=== PATIENT | male | born 1950 | race Caucasian/White ===

== ENCOUNTER → 2019-01-02 | Outpatient (CLI) | payer MEDICARE, OTHER | END | disposition home or self-care (01) | LOC: SHCH 14:49 | PROVIDERS: ATTEND Internal Medicine Cardiovascular Disease | DX: I08.0 Rheumatic disorders of both mitral and aortic valves (principal) | CPT/HCPCS: 93306 ==

== ENCOUNTER → 2019-01-10 | Outpatient (CLI) | payer MEDICARE, OTHER | END | disposition home or self-care (01) | LOC: RAH 12:22 | PROVIDERS: ATTEND Internal Medicine | DX: I70.209 Unspecified atherosclerosis of native arteries of extremities, unspecified extremity (principal) | CPT/HCPCS: 93925 ==

== ENCOUNTER → 2020-03-06 | Outpatient (CLI) | payer MEDICARE, OTHER | END | disposition home or self-care (01) | LOC: RAH 08:01 | PROVIDERS: ATTEND Internal Medicine | DX: K80.20 Calculus of gallbladder without cholecystitis without obstruction (principal); K76.0 Fatty (change of) liver, not elsewhere classified; R16.0 Hepatomegaly, not elsewhere classified | CPT/HCPCS: 76705 ==

== ENCOUNTER → 2020-05-01 | Outpatient (CLI) | payer MEDICARE, OTHER | END | disposition home or self-care (01) | LOC: RAH 13:28 | PROVIDERS: ATTEND Internal Medicine | DX: M25.78 Osteophyte, vertebrae (principal); M54.5 Low back pain | CPT/HCPCS: 72131 ==

== ENCOUNTER → 2020-07-09 | Outpatient (CLI) | payer MEDICARE, OTHER | END | disposition home or self-care (01) | LOC: RAH 14:44 | PROVIDERS: ATTEND Physical Medicine & Rehabilitation | DX: M48.062 Spinal stenosis, lumbar region with neurogenic claudication (principal); M51.26 Other intervertebral disc displacement, lumbar region | CPT/HCPCS: 72148 ==

== ENCOUNTER → 2020-11-05 | Outpatient (CLI) | payer MEDICARE, OTHER ==
[~2020-11-05] VITALS: Ht 170.2 cm; Wt 122.5 kg
[~2020-11-05] MED LIST: REGADENOSON 0.4 MG/5 ML PF SYG IVP SCH
== END ==
LOC: SHCH 08:31
PROVIDERS: ATTEND Internal Medicine Cardiovascular Disease
DX: I25.10 Atherosclerotic heart disease of native coronary artery without angina pectoris (principal); I42.9 Cardiomyopathy, unspecified; Z01.810 Encounter for preprocedural cardiovascular examination
CPT/HCPCS: 78452; 93017; 96374; A9500 ×2

== ENCOUNTER → 2021-01-07 | Outpatient (CLI) | payer MEDICARE, OTHER | END | disposition home or self-care (01) | LOC: OIH 11:17 | PROVIDERS: ATTEND Physical Medicine & Rehabilitation | DX: M17.11 Unilateral primary osteoarthritis, right knee (principal); M25.761 Osteophyte, right knee | CPT/HCPCS: 73562 ==

== ENCOUNTER → 2021-08-04 | Outpatient (CLI) | payer MEDICARE, OTHER | END | disposition home or self-care (01) | LOC: RAH 12:42 | PROVIDERS: ATTEND Orthopaedic Surgery Sports Medicine | DX: I70.293 Other atherosclerosis of native arteries of extremities, bilateral legs (principal); M17.11 Unilateral primary osteoarthritis, right knee | CPT/HCPCS: 93925 ==

== ENCOUNTER → 2021-08-22 | Outpatient (CLI) | payer MEDICARE, OTHER ==
[~2021-08-22] MED LIST changes: +APIX2.5T PO; +ATOR10 PO; +CALCIUM PO; +CARV3.1262 PO; +FOLI1TAB85 PO; +FURO-151 PO; +LATA7.5D OP; +METF-444 PO; +POTA-193 PO; -REGADENOSON 0.4 MG/5 ML PF SYG IVP SCH; +TIMO1DRO5 OP; +[UNRECOGNIZED DRUG - OTHER] PO
== END | disposition home or self-care (01) ==
LOC: RAH 13:47
PROVIDERS: ATTEND Orthopaedic Surgery
DX: M16.11 Unilateral primary osteoarthritis, right hip (principal); M17.11 Unilateral primary osteoarthritis, right knee; M19.071 Primary osteoarthritis, right ankle and foot; M25.851 Other specified joint disorders, right hip; M25.871 Other specified joint disorders, right ankle and foot; M25.771 Osteophyte, right ankle
CPT/HCPCS: 73700

== ENCOUNTER 2021-08-26 08:18 | Observation (INO) | payer MEDICARE, OTHER ==
[2021-08-20 11:59] LABS: CREATININE 1.3 mg/dL (0.5-1.5); POTASSIUM 4.3 mmol/L (3.5-5.1)
[2021-08-25 10:27] VITALS: BP 174/89
[2021-08-26] VITALS (21 sets, daily range): BP systolic 124–158; BP diastolic 58–80
[~2021-08-26] VITALS: Ht 170.2 cm; Wt 127.7 kg
[2021-08-26] MEDS: CEFAZOLIN SODIUM 1 GM VIAL IVP ONE ×2 (08:00→12:55)
[~2021-08-26 08:18] MED LIST changes: +LACTATED RINGERS 1000ML 1,000 ML IV SCH
[2021-08-26] MEDS ORDERED: CEFAZOLIN SODIUM 1 GM VIAL ONE ×2 (09:16→12:22)
[2021-08-26] MEDS ORDERED: 0.9%NACL 1000ML 1,000 ML IV ONE (09:17)
[2021-08-26] MEDS: ACETAMINOPHEN 500 MG TABLET PO SCH ×2 (10:30→18:00)
[2021-08-26] MEDS ORDERED: POTASSIUM CHLORIDE 20MEQ/100ML 100 ML IV PRN (10:30)
[2021-08-26] MEDS ORDERED: POTASSIUM CHLORIDE 10% ELIXIR 20 MEQ/15 ML UDCUP PO PRN (10:30)
[2021-08-26] MEDS: 0.9%NACL 1000ML 1,000 ML IV SCH (10:30)
[2021-08-26] MEDS ORDERED: HYDROCODONE/ACETAMINOPHEN 5/325 MG TAB PO PRN (10:30)
[2021-08-26] MEDS ORDERED: MORPHINE 4 MG SYG IVP PRN (10:30)
[2021-08-26] MEDS ORDERED: LIDOCAINE HCL-MPF 1% 2ML VIAL IV PRN (10:30)
[2021-08-26] MEDS ORDERED: ONDANSETRON 4MG INJ IVP PRN (10:30)
[2021-08-26] MEDS ORDERED: KCL 20 MEQ ERTAB PO PRN (10:30)
[2021-08-26] MEDS: INSULIN HUMULIN R 100 UNIT/ML 3ML SQ SCH ×3 (11:30→21:00)
[2021-08-26] MEDS: TRAMADOL HCL 50 MG TABLET PO SCH ×3 (12:00→23:39)
[2021-08-26] MEDS ORDERED: MIDAZOLAM HCL 1 MG/ML 2ML VIAL ONE (12:10)
[2021-08-26] MEDS ORDERED: ROPIVACAINE 0.5% 5MG/ML 30ML IJ ONE (12:12)
[2021-08-26] MEDS ORDERED: TRANEXAMIC ACID 1000MG/10ML ONE (12:22)
[2021-08-26] MEDS ORDERED: DEXAMETHASONE SOD PHOSPHATE 10MG/ML 1ML VIAL ONE (12:36)
[2021-08-26] MEDS ORDERED: PROPOFOL 1000 MG/100 ML 100 ML IV ONE (12:51)
[2021-08-26] MEDS: CEFAZOLIN SODIUM 1 GM VIAL IVP SCH ×2 (15:30→23:39)
[2021-08-26] MEDS ORDERED: MEPERIDINE-PF 25 MG/ML SYG ONE (15:57)
[2021-08-26] MEDS: ASPIRIN 81 MG EC TAB PO SCH (20:42)
[2021-08-26] MEDS: FAMOTIDINE 20MG TAB PO SCH (20:43)
[2021-08-26] MEDS: CARVEDILOL 3.125 MG TABLET PO SCH (20:44)
[2021-08-26] MEDS: METFORMIN HCL 500 MG TABLET PO SCH (20:45)
[2021-08-26] MEDS ORDERED: LATANOPROST 2.5 ML DROPS OP SCH (21:00)
[2021-08-26] MEDS: HYDROCODONE/ACETAMINOPHEN 10/325 MG TAB PO PRN (21:13)
[2021-08-27] VITALS: BP 143/76
[2021-08-27] MEDS: 0.9%NACL 1000ML 1,000 ML IV SCH ×2 (03:11→06:30)
[2021-08-27] MEDS: ACETAMINOPHEN 500 MG TABLET PO SCH ×3 (03:11→18:10)
[2021-08-27 04:00] VITALS: BP 136/67
[2021-08-27 05:13] LABS: HEMATOCRIT 41.3 % (42-54); MEAN CORPUSCULAR HEMOGLOBIN 29.3 pg (27.0-33.0); MEAN CORPUSCULAR VOLUME 91.8 fL (79-99); RED BLOOD CELL COUNT(AUTO) 4.5 MIL/uL (4.50-6.20); RED CELL DISTRIBUTION WIDTH 13.1 % (11.0-15.5); WHITE BLOOD COUNT (AUTO) 13.4 K/uL (4.8-10.8)
[2021-08-27 05:21] LABS: CREATININE 1.2 mg/dL (0.5-1.5); POTASSIUM 4.7 mmol/L (3.5-5.1)
[2021-08-27] MEDS: TRAMADOL HCL 50 MG TABLET PO SCH ×3 (06:26→18:00)
[2021-08-27] MEDS: INSULIN HUMULIN R 100 UNIT/ML 3ML SQ SCH ×3 (06:28→16:30)
[2021-08-27 08:00] VITALS: BP 130/58
[2021-08-27] MEDS ORDERED: TIMOLOL MALEATE 0.5% 5 ML BOTTLE OP SCH (09:00)
[2021-08-27] MEDS ORDERED: FUROSEMIDE 40 MG TABLET PO SCH (09:00)
[2021-08-27] MEDS ORDERED: POLYETHYLENE GLYCOL 3350 17 GM POWD.PACK PO SCH (09:00)
[2021-08-27] MEDS: CARVEDILOL 3.125 MG TABLET PO SCH (09:00)
[2021-08-27] MEDS ORDERED: KCL 20 MEQ ERTAB PO SCH (09:00)
[2021-08-27] MEDS: HYDROCODONE/ACETAMINOPHEN 10/325 MG TAB PO PRN (09:33)
[2021-08-27] MEDS: METFORMIN HCL 500 MG TABLET PO SCH (09:38)
[2021-08-27] MEDS: FAMOTIDINE 20MG TAB PO SCH (09:38)
[2021-08-27] MEDS: ASPIRIN 81 MG EC TAB PO SCH (09:38)
[2021-08-27 12:00] VITALS: BP 146/60
[2021-08-27 16:00] VITALS: BP 132/61
[2021-08-27] MEDS ORDERED: APIXABAN 2.5 MG TABLET PO SCH (21:00)
[2021-08-29] MEDS ORDERED: BISACODYL 10 MG SUPP.RECT RC PRN (10:30)
== END 2021-08-27 18:15 | disposition home or self-care (01) ==
LOC: DAH 08:18 → DAHIP 08:19 → DAH 08:19 → 3BH 16:55
PROVIDERS: ADMIT Orthopaedic Surgery; ATTEND Orthopaedic Surgery
DX: M17.11 Unilateral primary osteoarthritis, right knee (principal); Z20.822 Contact with and (suspected) exposure to COVID-19; E11.9 Type 2 diabetes mellitus without complications; I12.9 Hypertensive chronic kidney disease with stage 1 through stage 4 chronic kidney disease, or unspecified chronic kidney disease; N18.30 Chronic kidney disease, stage 3 unspecified; I25.10 Atherosclerotic heart disease of native coronary artery without angina pectoris; G89.29 Other chronic pain; M54.50 Low back pain, unspecified; E03.9 Hypothyroidism, unspecified; I34.0 Nonrheumatic mitral (valve) insufficiency; Z68.41 Body mass index [BMI] 40.0-44.9, adult; Z79.899 Other long term (current) drug therapy; Z98.890 Other specified postprocedural states
CPT/HCPCS: 27447; 36415 ×2; 64447; 64450; 76942; 80048 ×2; 82948 ×6; 85027; 87635; 87641; 96374; 97039 ×2; 97116 ×2; 97161; 97530 ×2; A4215; A4221; A4222; A4223; A4663; A6260; C9803; G0378 ×31; J0690 ×3; J1100; J1815; J2175; J2250; J2704; J2795; J3490; J7030 ×2

== ENCOUNTER → 2021-11-27 | Outpatient (CLI) | payer MEDICARE, OTHER ==
[~2021-11-27] MED LIST changes: -LACTATED RINGERS 1000ML 1,000 ML IV SCH
== END | disposition home or self-care (01) ==
LOC: SHCH 09:17
PROVIDERS: ATTEND Internal Medicine Cardiovascular Disease
DX: I87.2 Venous insufficiency (chronic) (peripheral) (principal)
CPT/HCPCS: 93970

== ENCOUNTER → 2022-06-25 | Outpatient (CLI) | payer MEDICARE, OTHER | END | disposition home or self-care (01) | LOC: RAH 13:44 | PROVIDERS: ATTEND Orthopaedic Surgery | DX: M19.072 Primary osteoarthritis, left ankle and foot (principal); M25.872 Other specified joint disorders, left ankle and foot; M19.09 Primary osteoarthritis, other specified site; M85.662 Other cyst of bone, left lower leg | CPT/HCPCS: 73700 ==

== ENCOUNTER → 2022-10-26 | Outpatient (CLI) | payer MEDICARE, OTHER ==
[~2022-10-26] MED LIST changes: -TIMO1DRO5 OP; +TIMO1DRO9 OP
== END | disposition home or self-care (01) ==
LOC: SHCH 10:58
PROVIDERS: ATTEND Internal Medicine Cardiovascular Disease
DX: I08.0 Rheumatic disorders of both mitral and aortic valves (principal)
CPT/HCPCS: 93306

== ENCOUNTER → 2023-08-24 | Outpatient (CLI) | payer MEDICARE, OTHER ==
[2023-08-24 12:42] LABS: CREATININE 1.4 mg/dL (0.5-1.5); POTASSIUM 4.3 mmol/L (3.5-5.1)
== END | disposition home or self-care (01) ==
LOC: LAB 08:04
PROVIDERS: ATTEND Physician Assistant
DX: I25.10 Atherosclerotic heart disease of native coronary artery without angina pectoris (principal); I34.0 Nonrheumatic mitral (valve) insufficiency
CPT/HCPCS: 36415; 80048

== ENCOUNTER → 2024-09-11 | Outpatient (CLI) | payer MEDICARE, OTHER | END | disposition home or self-care (01) | LOC: SHCH 08:50 | PROVIDERS: ATTEND Internal Medicine Cardiovascular Disease | DX: I35.0 Nonrheumatic aortic (valve) stenosis (principal) | CPT/HCPCS: 93306; 93356 ==

== ENCOUNTER 2025-04-27 22:30 | Inpatient (IN) | payer MEDICARE, OTHER ==
[~2025-04-27] VITALS: Ht 170.2 cm; Wt 118.8 kg
[2025-04-27 23:10] LABS: IMMATURE GRANULOCYTE ABSOLUTE 0.11 K/uL (0-1); NUCLEATED RED BLOOD CELLS 0.0 % (0.0-0.19); PLATELET COUNT (AUTO) 325 K/uL (130-400); RED BLOOD CELL COUNT(AUTO) 4.54 MIL/uL (4.50-6.20); RED CELL DISTRIBUTION WIDTH 14.5 % (11.0-15.5); WHITE BLOOD COUNT (AUTO) 14.3 K/uL (4.8-10.8)
--- NOTE | 2025-04-27 23:20 | ERN ---
General Chief Complaint: Shortness of Breath Stated Complaint: SOB Time Seen by MD: 22:34 Source: patient History of Present Illness Initial Comments 74-year-old male with a history of CHF, aortic stenosis, mitral valve regurgitation comes in with severe dyspnea on exertion and shortness of breath. He states that he missed a dose of his Lasix two days ago and two weeks ago he had also missed some of his Lasix doses because he was involved in a lawsuit. He has bilateral lower extremity swelling worse than usual. No fevers or chills. No chest pain. Allergies: Coded Allergies: No Known Drug Allergies (Unverified Allergy, Unknown, 11/04/20) Home Meds Reported Medications Latanoprost/Pf (Latanoprost 0.005% Eye Drop) 7.5 Ml Drops, 1 DROP OP HS, DROP 08/25/21 Timolol Maleate/Pf (Timolol Maleate 0.5% Eye Drop) 1 Each Droperette, 1 EACH OP DAILY, DROP 08/25/21 [Calcium 1200+D325] No Conflict Check, 1 TAB PO HS 08/25/21 Atorvastatin Calcium (LIPITOR) 20 Mg Tab, 20 MG PO HS, TAB 08/25/21 Apixaban (Eliquis) 2.5 Mg Tablet, 2.5 MG PO BID, TAB 08/25/21 Carvedilol (Coreg) 3.125 Mg Tablet, 3.125 MG PO BID, TAB 08/25/21 Potassium Chloride (Klor-Con M20) 20 Meq Tab.er.prt, 20 MEQ PO DAILY 08/25/21 Furosemide (Lasix) 40 Mg Tablet, 40 MG PO DAILY, TAB 08/25/21 Vit B Cmplx 3/FA/Vit C/Biotin (Nida-Riana Rx Tablet) 1 Each Tablet, 1 EACH PO DAILY, TAB 08/25/21 Metformin HCl (Metformin HCl) 500 Mg Tablet, 500 MG PO BID, TAB 08/25/21 Past Medical History Past Medical History: CAD, CHF, Diabetes-Type I, Hypertension, Other Medical History Other: MITRAL VALVE REGURGITATION, AORTIC STENOSIS Past Surgical History: Other Surgical History Other: LAMINECTOMY 2020, R KNEE REPLACEMENT 2021, L ANKLE DEBRIDEMENT 2022 Constitutional: (-) chills, (-) diaphoresis, (-) fever, (-) malaise, (-) weakness, (-) other documentation EENTM: (-) eye pain, (-) blurred vision, (-) tearing, (-) double vision, (-) ear pain, (-) ear discharge, (-) nose pain, (-) nose congestion, (-) throat pain, (-) Throat swelling, (-) mouth pain, (-) tooth pain, (-) mouth swelling, (-) other documentation Respiratory: (-) cough, (-) orthopnea, (-) short of breath, (-) stridor, (-) wheezing, (-) other documentation Cardiovascular: (+) edema, (+) dyspnea on exertion Gastrointestinal/Abdominal: (-) nausea, (-) vomiting, (-) diarrhea, (-) abdominal pain, (-) abdominal distention, (-) constipation, (-) rectal bleeding, (-) dark stool/melena, (-) other documentation Genitourinary: (-) penile discharge, (-) dysuria, (-) frequency, (-) hematuria, (-) pain, (-) other documentation Musculoskeletal: (-) Neck pain, (-) back pain, (-) Flank Pain, (-) joint pain, (-) joint swelling, (-) muscle pain, (-) muscle stiffness, (-) gout, (-) other documentation Physical Exam General Appearance: (+) mild distress, (+) moderate distress Orientation: (+) alert, (+) oriented x 3 Head/Face Trauma: No Eye: bilateral eye normal inspection, bilateral eye PERRL, bilateral eye EOMI Ear, Nose, Throat: (+) hearing grossly normal, (+) normal ENT inspection Neck: (+) normal inspection, (+) supple, (+) no JVD, (+) no bruit Respiratory: (+) chest non-tender, (+) decreased breath sounds, (+) other documentation (Patient's breath sounds are near absent bilaterally both anteriorly and posteriorly) Heart: (+) regular Heart Comment I barely detected any cardiac sounds. Vascular: (+) no JVD, (+) edema Gastrointestinal: (+) soft, (+) non-tender, (+) bowel sound present Results Laboratory and Microbiology Lab and Micro Result Laboratory Tests Test 04/27/25 22:58 White Blood Count 14.3 K/uL (4.8-10.8) H Red Blood Count 4.54 MIL/uL (4.50-6.20) Hemoglobin 13.6 g/dL (14.0-18.0) L Hematocrit 42.2 % (42-54) Mean Corpuscular Volume 93.0 fL (79-99) Mean Corpuscular Hemoglobin 30.0 pg (27.0-33.0) Mean Corpuscular Hemoglobin Concent 32.2 g/dL (32.0-36.0) Red Cell Distribution Width 14.5 % (11.0-15.5) Platelet Count 325 K/uL (130-400) Mean Platelet Volume 9.6 fL (7.5-10.5) Immature Granulocyte % (Auto) 0.8 % (0-1) Neutrophils (%) (Auto) 71.9 % (40.0-77.0) Lymphocytes (%) (Auto) 14.6 % (21.0-51.0) L Monocytes (%) (Auto) 10.6 % (3.0-13.0) Eosinophils (%) (Auto) 1.5 % (0.0-8.0) Basophils (%) (Auto) 0.6 % (0.0-5.0) Neutrophils # (Auto) 10.3 K/uL (1.8-7.7) H Lymphocytes # (Auto) 2.1 K/uL (1.0-4.8) Monocytes # (Auto) 1.5 K/uL (0.1-1.0) H Eosinophils # (Auto) 0.22 K/uL (0.00-0.70) Basophils # (Auto) 0.08 K/uL (0.00-0.20) Absolute Immature Granulocyte (auto 0.11 K/uL (0-1) Nucleated Red Blood Cells 0.0 % (0.0-0.19) Sodium Level 143 mmol/L (136-145) Potassium Level 4.5 mmol/L (3.5-5.1) Chloride Level 104 mmol/L (101-111) Carbon Dioxide Level 29 mmol/L (21-32) Blood Urea Nitrogen 38 mg/dL (7-18) H Creatinine 1.3 mg/dL (0.5-1.3) Glomerular Filtration Rate Calc 57 mL/min (>90) Random Glucose 135 mg/dL (70-105) H Total Calcium 9.2 mg/dL (8.5-10.1) Total Bilirubin 0.6 mg/dL (0.2-1.0) Aspartate Amino Transf (AST/SGOT) 23 U/L (10-37) Alanine Aminotransferase (ALT/SGPT) 28 U/L (12-78) Alkaline Phosphatase 25 U/L (50-136) L Troponin I High Sensitivity 73 ng/L (4-75) B-Type Natriuretic Peptide 648 pg/mL (0-100) H Total Protein 6.8 g/dL (6.0-8.3) Albumin 3.4 g/dL (3.5-5.0) L MDM MDM: Differential diagnosis: CHF, acute NE, valve failure, worsening aortic stenosis, fluid overload Rationale: Tests considered and ordered secondary to shared decision making include: Previous outside records reviewed: Old ER visits. Risk of complication and/or morbidity or mortality of patient management: None Medications-Per medication reconciliation Need for hospitalization: Patient does meet criteria for hospitalization. Need for emergency major/minor surgery: No There are no social concerns with this patient. Prescription drug management Prescriptions will include symptomatic care Patient's prior external medical records from other ER visits were reviewed by me as indicated. Prior testing and results from previous visits were reviewed. Prior tests were taken into account with medical decision making and resource utilization, independent historian/historians were used to obtain complete medical history. I independently interpreted the test that were performed, results were reviewed by me and considered findings on radiology if ordered. Patient's chest x-ray shows bilateral lower lung effusions going up to proximally 50% with a also hints of cephalization. Patient's BNP is 600. He is in CHF I have called the hospitalist service and they have agreed to admit him. ED Course Orders Procedure Category Date Status Time 12 Lead Ekg Tracing- EKG 04/27/25 Logged Technical 22:59 B-Type Natriuretic LAB 04/27/25 Complete Peptide 22:59 Cbc With Differential LAB 04/27/25 Complete 22:59 Comprehensive LAB 04/27/25 Complete Metabolic Panel 22:59 Troponin I High LAB 04/27/25 Complete Sensitivity 22:59 Chest 1vw RAD 04/27/25 Taken 22:59 Bumetanide 1mg/4ml PHA 04/27/25 Complete Vial (Bumex 1mg Vial) 23:30 Current Medications Medications (Trade) Dose Ordered Sig/Dajuan Route PRN Reason Start Time Stop Time Status Last Admin Dose Admin Bumetanide (Bumex 1mg Vial) 2 mg ONCE ONCE IVP 04/27/25 23:30 04/27/25 23:31 DC 04/27/25 23:25 Vital Signs Date Time Temp Pulse Resp B/P (MAP) Pulse Ox O2 Delivery O2 Flow Rate FiO2 04/27/25 23:05 99.0 88 16 149/78 100 Nasal Cannula* 2 28 04/27/25 22:33 99.0 87 22 142/67 95 Room Air 0 DX & DISP Disposition: Inpatient Departure Impression: Primary Impression: CHF (congestive heart failure) Additional Impression: Pleural cavity effusion Condition: Stable Referrals: GRACIELA BONILLA MD (PCP) SENA RAMIREZ MD Apr 27, 2025 23:20
[2025-04-27 23:22] LABS: ASPARTATE AMINOTRANSFERASE 23.0 U/L (10-37); CREATININE 1.3 mg/dL (0.5-1.3); GLOMERULAR FILTR. RATE CALC 57.0 mL/min (>90); GLUCOSE,RANDOM 135.0 mg/dL (70-105); TOTAL PROTEIN, SERUM 6.8 g/dL (6.0-8.3); UREA NITROGEN, BLOOD 38.0 mg/dL (7-18)
[2025-04-27] MEDS: BUMETANIDE 1MG/4ML VIAL IVP ONE (23:25)
[2025-04-27 23:29] LABS: SODIUM SERUM 143.0 mmol/L (136-145)
[2025-04-28] VITALS (14 sets, daily range): BP systolic 113–150; BP diastolic 50–71; PULSE 63–83; RESP 18–20; TEMP 97.4–98; O2SAT 92–98
--- NOTE | 2025-04-28 00:23 | HMCIMG ---
EXAM: CR Chest, 1 view CLINICAL HISTORY: Shortness of breath. COMPARISON: 02/27/2011. FINDINGS: Mild cardiomegaly, pulmonary vascular congestion, and bilateral lower zone airspace disease. Questionable trace pleural effusions bilaterally. No pneumothorax. No acute osseous abnormality. IMPRESSION: Mild cardiomegaly, pulmonary vascular congestion, and bilateral lower zone airspace disease. Questionable trace pleural effusions bilaterally. The findings are new compared to the previous chest radiograph. /[place]
--- NOTE | 2025-04-28 01:23 | EKG ---
[facility] Test Date: 2025-04-27 Test Time: 22:37:52 Pat Name: YVETTE GLASS Department: ED Room: 419 Gender: M [employer] Boss: [id number] : 1950 Requested By: SENA RAMIREZ Order Number: [id number] Reading MD: Josh Patterson Measurements Intervals [place] Rate: 89 P: 52 WV: 222 QRS: -48 QRSD: 147 T: 95 QT: 366 QTc: 445 Interpretive Statements Sinus rhythm Prolonged WV interval Left bundle branch block No previous ECG available for comparison Electronically Signed On 04-28-2025 17:46:01 CDT by Josh Patterson Please click the below link to view image of tracing.
--- NOTE | 2025-04-28 03:07 | HP ---
[facility] Date of Service: Apr 28, 2025 Time of Service: 03:07 PCP: Delfina Kaiser HISTORY OF PRESENT ILLNESS: This is a 74 year old male with past medical history of CHF,Aortic stenosis,Mitral valve regurgitation, hypertension, hyperlipidemia, diabetes, morbid obesity and obstructive sleep apnea on CPAP at home who presents to the ED for complaints of shortness of breath.Patient reports he missed the dose of Lasix for the past 5 days and he will take the Lasix and missed the Lasix dose again for another 3 days because he was at the court [place] and Last he traveled and missed his dose of Lasix but he noticed has been short of breath and his urine has decreased and his legs are also swollen so he decided to come to the Ed for evaluation.Patient has an appointment with 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 On examination patient is awake alert and or iented appears mildly short of breath on exertion, patient denies fever, cough, palpitation, chest pain, shortness of breaths signs. Latest vital signs temperature 99, heart rate 76, blood pressure 126/69 saturation 98% on 2 L nasal cannula. Labs: WBC 14 , neutrophils 71, hemoglobin 13, hematocrit 42 platelet 325 troponin 73, BNP 648, BUN 38, glucose 135, alkaline phos 25, albumin 3.4. Chest x-ray result revealed mild cardiomegaly, pulmonary vascular congestion and bilateral lower zone airspace disease. Questionable trace pleural effusion bilaterally. While in the ER patient received 2 mg of Bumex patient for further medical management. REVIEW OF SYSTEMS CONSTITUTIONAL: Denies fevers, chills, or night sweats. No unintentional weight loss reported. NEUROLOGICAL: Denies headache, amaurosis fugax, motor weakness, sensory deficit, vertigo/spinning sensation, gait abnormalities, or tremors. ENT: No hearing loss, otalgia, otorrhea, rhinitis, rhinorrhea, hoarseness, or sore throat. CARDIOVASCULAR: Denies any exertional angina, dyspnea on exertion, orthopnea, paroxysmal nocturnal dyspnea, palpitations, life-threatening arrhythmias, claudication. PULMONARY: + Shortness of breaths Denies cough, phlegm/sputum, hemoptysis, pleuritic chest pain. SLEEP: Denies morning headaches, daytime somnolence or napping. Denies difficulty falling asleep, staying asleep, waking from sleep. Denies knowledge of snoring. GASTROINTESTINAL: Denies any type of dysphagia to either liquids or solids. Denies nausea, vomiting, pyrosis, early satiety, abdominal pain, diarrhea, constipation, or changes in stool consistency or caliber. Denies coffee-ground emesis, hematemesis, hematochezia, or melanotic stools. GENITOURINARY: Denies frequency, urgency, nocturia, hematuria or incontinence (Storage/Irritative symptoms.) Low urinary stream, straining to void, urinary intermittency or hesitancy, splitting of the voiding stream, terminal dribbling. ENDOCRINOLOGIC: Denies polyuria, polydipsia, polyphagia or heat/cold intolerances. HEMATOLOGIC: Denies thrombophilia/previous clots, or coagulopathy/bleeding disorders. ONCOLOGIC: Denies personal history of malignancy. DERMATOLOGIC: Denies rashes or pruritus. PSYCHIATRIC: Denies any suicidal or homicidal ideation. Denies hallucinations. PAST MEDICAL HISTORY: [ CHF,Aortic stenosis,Mitral valve regurgitation, hypertension, hyperlipidemia, diabetes, morbid obesity and obstructive sleep apnea on CPAP ] PAST SURGICAL HISTORY: [ Laminectomy 2020, right knee replacement 2021, left ankle debridement 2022] PAST SOCIAL HISTORY: [ Patient lives with . Patient denies tobacco and recreational drug use. Patient states he drinks a glass of wine occasionally a month ] FAMILY HISTORY: [ Cancer ] Coded Allergies: No Known Drug Allergies (Unverified Allergy, Unknown, 11/04/20) PHYSICAL EXAM GENERAL APPEARANCE: The patient is awake, alert, and oriented,mildly shortness of breath NEUROLOGICAL: Cranial nerves II-XII grossly intact. Motor is 5/5 in bilateral upper and lower extremities proximal to distal. No sensory deficits. HEENT: Face is symmetric. Pupils are equal and reactive. Extraocular movements are intact. NECK: Supple. No JVD. No thyromegaly. No submental, submandibular, pre- /postauricular, occipital or supraclavicular lymphadenopathy. CHEST: Normal chest expansion. No Telemetry. LUNGS: Absence of any rales, rhonchi or any wheezing. CARDIOVASCULAR: Regular. S1 and S2 normal. No appreciable rubs, murmurs or gallops. ABDOMEN: Soft, nontender, and nondistended. There is no rebound, voluntary guarding, or rigidity. : Deferred. No [place]. EXTREMITIES: 2+ edema to both lower extremities and not cyanotic. No clubbing. Good capillary refill. SKIN: No skin breakdown. Vital Sign (Last 24 Hours) 04/27/25 23:05 Temp 99.0 Pulse 88 Resp 16 B/P (MAP) 149/78 Pulse Ox 100 O2 Delivery Nasal Cannula* O2 Flow Rate 2 FiO2 28 LABS: Laboratory: Test 04/27/25 22:58 Range/Units White Blood Count 14.3 H 4.8-10.8 K/uL Red Blood Count 4.54 4.50-6.20 MIL/uL Hemoglobin 13.6 L 14.0-18.0 g/dL Hematocrit 42.2 42-54 % Mean Corpuscular Volume 93.0 79-99 fL Mean Corpuscular Hemoglobin 30.0 27.0-33.0 pg Mean Corpuscular Hemoglobin Concent 32.2 32.0-36.0 g/dL Red Cell Distribution Width 14.5 11.0-15.5 % Platelet Count 325 130-400 K/uL Mean Platelet Volume 9.6 7.5-10.5 fL Immature Granulocyte % (Auto) 0.8 0-1 % Neutrophils (%) (Auto) 71.9 40.0-77.0 % Lymphocytes (%) (Auto) 14.6 L 21.0-51.0 % Monocytes (%) (Auto) 10.6 3.0-13.0 % Eosinophils (%) (Auto) 1.5 0.0-8.0 % Basophils (%) (Auto) 0.6 0.0-5.0 % Neutrophils # (Auto) 10.3 H 1.8-7.7 K/uL Lymphocytes # (Auto) 2.1 1.0-4.8 K/uL Monocytes # (Auto) 1.5 H 0.1-1.0 K/uL Eosinophils # (Auto) 0.22 0.00-0.70 K/uL Basophils # (Auto) 0.08 0.00-0.20 K/uL Absolute Immature Granulocyte (auto 0.11 0-1 K/uL Nucleated Red Blood Cells 0.0 0.0-0.19 % Sodium Level 143 136-145 mmol/L Potassium Level 4.5 3.5-5.1 mmol/L Chloride Level 104 101-111 mmol/L Carbon Dioxide Level 29 21-32 mmol/L Blood Urea Nitrogen 38 H 7-18 mg/dL Creatinine 1.3 0.5-1.3 mg/dL Glomerular Filtration Rate Calc 57 >90 mL/min Random Glucose 135 H 70-105 mg/dL Total Calcium 9.2 8.5-10.1 mg/dL Total Bilirubin 0.6 0.2-1.0 mg/dL Aspartate Amino Transf (AST/SGOT) 23 10-37 U/L Alanine Aminotransferase (ALT/SGPT) 28 12-78 U/L Alkaline Phosphatase 25 L 50-136 U/L Troponin I High Sensitivity 73 4-75 ng/L B-Type Natriuretic Peptide 648 H 0-100 pg/mL Total Protein 6.8 6.0-8.3 g/dL Albumin 3.4 L 3.5-5.0 g/dL Current Medications Medications (Trade) Dose Ordered Sig/Dajuan Route PRN Reason Start Time Stop Time Status Last Admin Dose Admin Acetaminophen (TYLenol 325MG TAB) 650 mg Q4H PRN PO MILD PAIN (1-3) 04/28/25 03:00 05/28/25 02:59 Acetaminophen (TYLenol 325MG TAB) 650 mg Q6H PRN PO TEMPERATURE GREATER THAN 101.5 04/28/25 03:00 05/28/25 02:59 Albuterol (DUOneb) 1 udvial [id number] IH 04/28/25 06:00 05/28/25 05:59 Famotidine (Pepcid 20mg Tab) 20 mg DAILY PO 04/28/25 09:00 05/28/25 08:59 Ondansetron HCl (zoFRAN 4MG INJ) 4 mg Q6H PRN IV NAUSEA/VOMITING 04/28/25 03:00 05/28/25 02:59 DIAGNOSTICS / RADIOLOGY: [ ] ASSESSMENT: CHF exacerbation POA Aortic Stenosis POA Mitral valve regurgitation POA Morbid obesity POA Hypertension POA Hyperlipidemia POA Diabetes POA Obstructive sleep apnea on BiPAP POA PLAN: We will admit patient in medical telemetry We will start on heart healthy diet Start on Lasix 20 mg IV q.12 We will start on famotidine 20 mg p.o. daily for GI prophylaxis We will replace electrolytes as needed per protocol We will start on insulin sliding scale AC & HS with hypoglycemia protocol We will add prn medication for fever,pain,cough , nausea and vomiting We will reconcile home meds once medlist available Restrict fluid 1.5 L per day Daily weight Strict I&O Request for echocardiogram We will continue oxygen supplementation to keep saturation above 92% We will seek Cardiology consultation We will request labs in am Further orders to follow depending on above results Case discussed with attending physician and came up with above treatment and plan of care. ADVANCED CARE PLANNING 1. Which of the following were discussed? Hospice Care - No Therapeutic options - Yes Advance Directives - No Other discussions - 2. Discussed with who? Patient and 3. Voluntary nature of this service was explained to the patient? Yes 4. Amount of time spent - 25 min 5. Reviewed by Physician? (if this service was performed by NPP) Yes Patient seen and examined by me. Agree with note by BUSINESS OPERATIONS ANALYST SEE ADDITIONAL ORDERS PER CHART DISCUSSED WITH NURSING STAFF SAMIRA WELLS Apr 28, 2025 03:07
[2025-04-28] MEDS ORDERED: GLUCAGON 1MG KIT 1 MG ML IM PRN (03:30)
[2025-04-28] MEDS ORDERED: PoTASSium chloRIDE 20MEQ ER 20 MEQ ERTAB PO PRN (03:30)
[2025-04-28] MEDS ORDERED: MAGNESIUM 2GM PREMIX 50ML 50 ML IV PRN (03:30)
[2025-04-28] MEDS ORDERED: PoTASSium chl 10% ELIXIR 20MEQ 20 MEQ/15 ML UDCUP PO PRN (03:30)
[2025-04-28] MEDS ORDERED: DEXTROSE 50%-WATER 50 ML DISP.SYRIN IV PRN (03:30)
--- NOTE | 2025-04-28 04:45 | NUR ---
REPORT GIVEN TO MCKENZIE NUNEZ AT THIS TIME
[2025-04-28] MEDS ORDERED: CARV6.25 PO (05:49)
[2025-04-28] MEDS ORDERED: LOSA25TA41 PO (05:49)
[2025-04-28] MEDS ORDERED: FURO20TA4 PO (05:49)
[2025-04-28 06:17] LABS: IMMATURE GRANULOCYTE ABSOLUTE 0.11 K/uL (0-1); NUCLEATED RED BLOOD CELLS 0.0 % (0.0-0.19); PLATELET COUNT (AUTO) 299 K/uL (130-400); RED BLOOD CELL COUNT(AUTO) 4.59 MIL/uL (4.50-6.20); RED CELL DISTRIBUTION WIDTH 14.6 % (11.0-15.5); WHITE BLOOD COUNT (AUTO) 13.6 K/uL (4.8-10.8)
[2025-04-28 06:46] LABS: ASPARTATE AMINOTRANSFERASE 20.0 U/L (10-37); CREATININE 1.3 mg/dL (0.5-1.3); GLOMERULAR FILTR. RATE CALC 57.0 mL/min (>90); GLUCOSE,RANDOM 139.0 mg/dL (70-105); SODIUM SERUM 140.0 mmol/L (136-145); TOTAL PROTEIN, SERUM 7.1 g/dL (6.0-8.3); UREA NITROGEN, BLOOD 34.0 mg/dL (7-18)
[2025-04-28] MEDS: FAMOTIDINE 20MG TAB PO SCH (10:23)
--- NOTE | 2025-04-28 13:46 | HMCSR ---
APPROVED REPORT EXAM: Two-dimensional and M-mode echocardiogram with Doppler and color Doppler. INDICATION ICD: Shortness of breath R06.02 2D Dimensions RVDd4.5 cmLVEF(%)15.2 (>50%)LVED Vol(simp.)205.0 mL IVSd0.6 (0.7-1.1cm)FS(%)7 %LVES Vol(simp.)142.0 mL LVDd6.1 (3.8-5.6cm)LA (2D)5.0 (1.6-4.0cm)LVEF(%, simp.)31 % PWd0.6 (0.7-1.1cm)Ao Root(2D)2.7 (2.0-3.7cm)LA ESV INDEX (BP)37.50 mL/m2 LVDs5.7 (2.5-4.0cm)LVOT diam2.2 (1.8-2.4cm) IVC diam2.5 cm Deformation Strain Apical 4-7.2 % Apical 2-7.8 % Apical 3-5.1 % Global Strain-6.7 % M-Mode Dimensions EPSS1.4 cm LA (MM)6.1 (1.6-4.0cm) Ao Root(MM)3.0 (2.0-3.7cm) Aortic Valve AoV Vmax3.6 m/Keila Peak GR51.2 mmHgLVOT Vmax0.9 m/s AoV VTI0.8 mAo Mean GR32.8 mmHgLVOT VTI0.20 m ARVIN (VMAX)1.00 cm2Al P1/2T263 msAVA (VTI) 0.9 cm2 Mitral Valve MV E Wbdx056.2 cm/sDECEL Rfvn712 ms MV A Vmax50.7 cm/sP 1/2 T72 ms E/A ratio2.1MVA (PHT)3.1 cm2 TDI E/E' Tlytkz27.9E/E' Rjzqdvv01.9 Medial E' Peak V4.99 cm/sLateral E' Peak V6.17 cm/s Pulmonary Valve PV Vmax1.2 m/sPV VTI0.22 mPV Mean GR2.8 mmHg PV Peak GR5.5 mmHg Left Ventricle The left ventricle is severely dilated. There is normal left ventricular wall thickness. LVEF is 30-3 5%. Cannot rule out left ventricular apical thrombus. Stage II diastolic dysfunction. Right Ventricle The right ventricle is mildly dilated. The right ventricular systolic function is normal. Atria LAE ADRIANO Aortic Valve The aortic valve is calcified and displays decreased opening. Moderate aortic regurgitation. Severe l ow flow low gradient aortic stenosis with ARVIN 0.9 cm2. Highest mean aortic valve gradient is 39mmHg. Peak aortic valve gradient is 58mmHg. PV 3.3 m/s. Mitral Valve Mitral valve leaflets appear normal. Mitral regurgitation is mild. There is no mitral valve stenosis. Tricuspid Valve The tricuspid valve is normal in structure. There is no tricuspid valve regurgitation noted. Pulmonic Valve The pulmonary valve is normal in structure and function. There is no pulmonic valvular regurgitation. Great Vessels The aortic root is normal in size. IVC is dilated and collapses <50% with inspiration. Pericardium No pericardial effusion. Conclusion The left ventricle is severely dilated. LVEF is 30-35%. Stage II diastolic dysfunction. Cannot rule out left ventricular apical thrombus. The right ventricle is mildly dilated. The right ventricular systolic function is normal. LAE ADRIANO The aortic valve is calcified and displays decreased opening. Moderate aortic regurgitation. Severe low flow low gradient aortic stenosis with ARVIN 0.9 cm2. Highest mean aortic valve gradient is 39mmHg. Peak aortic valve gradient is 58mmHg. PV 3.3 m/s. Mitral regurgitation is mild. IVC is dilated and collapses <50% with inspiration. No pericardial effusion.
--- NOTE | 2025-04-28 14:04 | CONS ---
[facility] CARDIOLOGY CONSULTATION NOTE Date Patient Seen: Apr 28, 2025 Time of Visit: 13:51 Reason for Consultation: [CHF exacerbation ] History of Present Illness: [ 74-year-old male patient that follows up in Cardiology Clinic with Dr. Shelton, with a past medical history of ischemic cardiomyopathy, aortic stenosis, hypertension, type 2 diabetes, morbid obesity patient presents to the emergency department endorsing ongoing progressive shortness of breath, with a underlying noncompliance of Lasix for the past week, noted bilateral lower extremity swelling, this prompted the patient to present to the emergency department for further evaluation, troponin 73, BNP 648, chest x-ray with pulmonary vascular congestion, trace pleural effusion bilaterally, patient was treated initially with Bumex . Presenting ECG sinus rhythm, left bundle branch block , on examination the patient is sitting in his chair comfortably, requiring supplemental O2 by nasal cannula, on physical exam we noted decreased breath sounds bilaterally, no pressors of JVD or rales, trace bilateral lower extremity edema. The patient denies any chest pain, palpitations, or any other anginal equivalents. Patient underwent 2D echocardiogram, pending results. Cardiology was consulted for CHF exacerbation] Past Medical History: [ Refer to chart] Past Surgical History: [ Refer to HPI] Family History: [ Refer to HPI] Social History: [ Refer to HPI] Habits: [Never] smoker. [Denies] alcohol consumption. [Denies] illicit drug use Review of Systems: A review of12 point systems was negative set per HPI Physical Examination: GENERAL: [No acute distress.] HEAD: [Normal with no signs of head trauma.] EYES: [PERRLA, EOMI, conjunctiva and sclera normal.] ENT: [Hearing grossly intact, normal oropharynx.] NECK: [Supple without JVD. There is no tenderness, lymphadenopathy, or masses. No thyromegaly. Normal carotid upstrokes without bruits.] LUNGS: [Decreased breath sounds bilaterally HEART: [Normal rate and rhythm. Normal S1 and S2 without mumurs, gallop or rub.] VASC: [Peripheral pulses +2 bilaterally.] ABD: [Bowel sounds normal, soft, nontender, no masses, no organomegaly. No audible bruits.] : [Not examined] LYMPH: [No lymphadenopathy noted.] EXT: [Trace bilateral lower extremity edema.] SKIN: [No rashes or lesions noted.] NEURO: [Awake, alert, and oriented x3. No focal sensory or strength deficits noted.] Vital Signs (last 8hr) Date Time Temp Pulse Resp B/P (MAP) Pulse Ox O2 Delivery O2 Flow Rate FiO2 04/28/25 12:00 98.1 68 18 132/71 95 Nasal Cannula 1.0 04/28/25 10:29 75 20 04/28/25 08:00 98.1 78 18 135/65 92 Nasal Cannula 1.0 04/28/25 06:55 71 20 04/28/25 06:55 74 20 N/Cannula Low lpm 2.0 28 Laboratory: [ ] Hematology Labs: Test 04/28/25 06:00 Range/Units White Blood Count 13.6 H 4.8-10.8 K/uL Red Blood Count 4.59 4.50-6.20 MIL/uL Hemoglobin 13.7 L 14.0-18.0 g/dL Hematocrit 42.1 42-54 % Mean Corpuscular Volume 91.7 79-99 fL Mean Corpuscular Hemoglobin 29.8 27.0-33.0 pg Mean Corpuscular Hemoglobin Concent 32.5 32.0-36.0 g/dL Red Cell Distribution Width 14.6 11.0-15.5 % Platelet Count 299 130-400 K/uL Mean Platelet Volume 9.8 7.5-10.5 fL Immature Granulocyte % (Auto) 0.8 0-1 % Neutrophils (%) (Auto) 69.3 40.0-77.0 % Lymphocytes (%) (Auto) 16.7 L 21.0-51.0 % Monocytes (%) (Auto) 11.4 3.0-13.0 % Eosinophils (%) (Auto) 1.3 0.0-8.0 % Basophils (%) (Auto) 0.5 0.0-5.0 % Neutrophils # (Auto) 9.4 H 1.8-7.7 K/uL Lymphocytes # (Auto) 2.3 1.0-4.8 K/uL Monocytes # (Auto) 1.6 H 0.1-1.0 K/uL Eosinophils # (Auto) 0.18 0.00-0.70 K/uL Basophils # (Auto) 0.07 0.00-0.20 K/uL Absolute Immature Granulocyte (auto 0.11 0-1 K/uL Nucleated Red Blood Cells 0.0 0.0-0.19 % Chemistry Labs: Test 04/28/25 10:33 04/28/25 06:00 Range/Units Whole Blood Glucose 157 H 70-110 MG/DL Sodium Level 140 136-145 mmol/L Potassium Level 4.6 3.5-5.1 mmol/L Chloride Level 102 101-111 mmol/L Carbon Dioxide Level 31 21-32 mmol/L Blood Urea Nitrogen 34 H 7-18 mg/dL Creatinine 1.3 0.5-1.3 mg/dL Glomerular Filtration Rate Calc 57 >90 mL/min Random Glucose 139 H 70-105 mg/dL Total Calcium 9.0 8.5-10.1 mg/dL Magnesium Level 2.20 1.80-2.40 mg/dL Total Bilirubin 1.0 # 0.2-1.0 mg/dL Aspartate Amino Transf (AST/SGOT) 20 10-37 U/L Alanine Aminotransferase (ALT/SGPT) 26 12-78 U/L Alkaline Phosphatase 31 L 50-136 U/L Troponin I High Sensitivity 81 *H 4-75 ng/L B-Type Natriuretic Peptide 621 H 0-100 pg/mL Total Protein 7.1 6.0-8.3 g/dL Albumin 3.3 L 3.5-5.0 g/dL Diagnostics / Radiology: [Copy/Paste Echos/Imaging Report here] Assessment: [History of aortic stenosis Type 2 diabetes mellitus Hypertension Morbid obesity Hyperlipidemia Ischemic cardiomyopathy ] Plan: [#HFrEF ICM - LVEF 30-35 % - NYHA III Compensated but not euvolemic on exam Lexiscan stress test in 2020 with large severe fixed defect from base to apex involves the entire lateral inferior wall corresponding to akinetic segments 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 Strict I's and O's and daily weights, continue Lasix 20 mg IV every 12 hours Optimize GDMT: Coreg 6.25 mg every 12 hours, mg daily, Jardiance 10 mg daily Pending 2D echocardiogram results Thank you for this consult cardiology will continue to follow along, formal recommendations pending 2D echocardiogram results Josh bautista MD ] ATTESTATION BY PHYSICIAN I have seen and examined the patient, reviewed the above documentation, participated in medical decision making, made necessary modifications, and agree with the treatment plan as documented by my mid-level provider above. MD MARIA GUADALUPE Soliman JAMES R MD Apr 28, 2025 14:04
--- NOTE | 2025-04-28 16:48 | PN ---
[facility] PROGRESS NOTE Date of Service: Apr 28, 2025 Time of Service: 16:48 SUBJECTIVE: 04/28/2025: The patient was evaluated at bedside in the presence of the RN and a family member. He was observed sitting comfortably in a chair, appearing tired but without signs of acute respiratory distress. He remains on 2.0 L nasal cannula. The patient continues to receive furosemide 20 mg BID for diuresis. Cardiology, under the care of Dr. Patterson, has optimized medical management for congestive heart failure. Recent laboratory studies showed improvement in WBC count from 14.3 to 13.6 and a slight improvement in BNP from 648 to 621. Echocardiogram revealed a severely dilated left ventricle with an ejection fraction of 3035%, stage II diastolic dysfunction, a calcified aortic valve, moderate aortic regurgitation, and severe low-flow, low-gradient aortic stenosis with an aortic valve area of 0.9 cm. The plan is to continue diuresis and monitor the patients clinical and laboratory response. Further assessment and plan are outlined below. REVIEW OF SYSTEMS CONSTITUTIONAL: Denies fevers, chills, or night sweats. No unintentional weight loss reported. ENT: No hearing loss, otalgia, otorrhea, rhinitis, rhinorrhea, hoarseness, or sore throat. CARDIOVASCULAR: Denies any exertional angina, dyspnea on exertion, orthopnea, paroxysmal nocturnal dyspnea, palpitations, life-threatening arrhythmias, claudication. PULMONARY: + Shortness of breath, Denies cough, phlegm/sputum, hemoptysis, pleuritic chest pain. GENITOURINARY: Denies frequency, urgency, nocturia, hematuria or incontinence (Storage/Irritative symptoms.) Low urinary stream, straining to void, urinary intermittency or hesitancy, splitting of the voiding stream, terminal dribbling. ENDOCRINOLOGIC: Denies polyuria, polydipsia, polyphagia or heat/cold intolerances. HEMATOLOGIC: Denies thrombophilia/previous clots, or coagulopathy/bleeding disorders. ONCOLOGIC: Denies personal history of malignancy. DERMATOLOGIC: Denies rashes or pruritus. PSYCHIATRIC: Denies any suicidal or homicidal ideation. Denies hallucinations. PHYSICAL EXAM GENERAL APPEARANCE: The patient is awake, alert, and oriented,mildly shortness of breath NEUROLOGICAL: Cranial nerves II-XII grossly intact. Motor is 5/5 in bilateral upper and lower extremities proximal to distal. No sensory deficits. CHEST: Normal chest expansion. No Telemetry. LUNGS: Absence of any rales, rhonchi. Diminished b/l lung sounds, +expiratory wheezing CARDIOVASCULAR: Regular. S1 and S2 normal. No appreciable rubs, murmurs or gallops. ABDOMEN: Soft, nontender, and nondistended. There is no rebound, voluntary guarding, or rigidity.. EXTREMITIES: 1+ edema to both lower extremities and not cyanotic. No clubbing. Good capillary refill. SKIN: No skin breakdown. Vital Signs (last 8hr) Date Time Temp Pulse Resp B/P (MAP) Pulse Ox O2 Delivery O2 Flow Rate FiO2 04/28/25 16:00 97.3 69 18 113/56 96 Nasal Cannula 1.0 04/28/25 14:05 76 20 04/28/25 12:00 98.1 68 18 132/71 95 Nasal Cannula 1.0 04/28/25 10:29 75 20 LABS: Laboratory: Test 04/28/25 15:02 04/28/25 06:00 Range/Units Whole Blood Glucose 176 H 70-110 MG/DL White Blood Count 13.6 H 4.8-10.8 K/uL Red Blood Count 4.59 4.50-6.20 MIL/uL Hemoglobin 13.7 L 14.0-18.0 g/dL Hematocrit 42.1 42-54 % Mean Corpuscular Volume 91.7 79-99 fL Mean Corpuscular Hemoglobin 29.8 27.0-33.0 pg Mean Corpuscular Hemoglobin Concent 32.5 32.0-36.0 g/dL Red Cell Distribution Width 14.6 11.0-15.5 % Platelet Count 299 130-400 K/uL Mean Platelet Volume 9.8 7.5-10.5 fL Immature Granulocyte % (Auto) 0.8 0-1 % Neutrophils (%) (Auto) 69.3 40.0-77.0 % Lymphocytes (%) (Auto) 16.7 L 21.0-51.0 % Monocytes (%) (Auto) 11.4 3.0-13.0 % Eosinophils (%) (Auto) 1.3 0.0-8.0 % Basophils (%) (Auto) 0.5 0.0-5.0 % Neutrophils # (Auto) 9.4 H 1.8-7.7 K/uL Lymphocytes # (Auto) 2.3 1.0-4.8 K/uL Monocytes # (Auto) 1.6 H 0.1-1.0 K/uL Eosinophils # (Auto) 0.18 0.00-0.70 K/uL Basophils # (Auto) 0.07 0.00-0.20 K/uL Absolute Immature Granulocyte (auto 0.11 0-1 K/uL Nucleated Red Blood Cells 0.0 0.0-0.19 % Sodium Level 140 136-145 mmol/L Potassium Level 4.6 3.5-5.1 mmol/L Chloride Level 102 101-111 mmol/L Carbon Dioxide Level 31 21-32 mmol/L Blood Urea Nitrogen 34 H 7-18 mg/dL Creatinine 1.3 0.5-1.3 mg/dL Glomerular Filtration Rate Calc 57 >90 mL/min Random Glucose 139 H 70-105 mg/dL Total Calcium 9.0 8.5-10.1 mg/dL Magnesium Level 2.20 1.80-2.40 mg/dL Total Bilirubin 1.0 # 0.2-1.0 mg/dL Aspartate Amino Transf (AST/SGOT) 20 10-37 U/L Alanine Aminotransferase (ALT/SGPT) 26 12-78 U/L Alkaline Phosphatase 31 L 50-136 U/L Troponin I High Sensitivity 81 *H 4-75 ng/L B-Type Natriuretic Peptide 621 H 0-100 pg/mL Total Protein 7.1 6.0-8.3 g/dL Albumin 3.3 L 3.5-5.0 g/dL Current Medications Medications (Trade) Dose Ordered Sig/Dajuan Route PRN Reason Start Time Stop Time Status Last Admin Dose Admin Acetaminophen (TYLenol 325MG TAB) 650 mg Q4H PRN PO MILD PAIN (1-3) 04/28/25 03:00 05/28/25 02:59 Acetaminophen (TYLenol 325MG TAB) 650 mg Q6H PRN PO TEMPERATURE GREATER THAN 101.5 04/28/25 03:00 05/28/25 02:59 Albuterol (DUOneb) 1 UDVIAL Q6H PRN IH SHORTNESS OF BREATH 04/28/25 03:30 05/28/25 03:29 Albuterol (DUOneb) 1 udvial [id number] IH 04/28/25 06:00 05/28/25 05:59 04/28/25 14:04 1 UDVIAL Apixaban (EliquIS 2.5 mg) 2.5 mg BID PO 04/28/25 21:00 05/28/25 20:59 Atorvastatin Calcium (LIPItor 20MG) 20 mg HS PO 04/28/25 21:00 05/28/25 20:59 Carvedilol (Coreg 6.25MG) 6.25 mg BID PO 04/28/25 21:00 05/28/25 20:59 Dextrose (D50w) 50 ml AD PRN IV HYPOGLYCEMIA PROTOCOL 04/28/25 03:30 05/28/25 03:29 Famotidine (Pepcid 20mg Tab) 20 mg DAILY PO 04/28/25 09:00 05/28/25 08:59 04/28/25 10:23 20 MG Furosemide (LASix 20MG VIAL) 20 mg Q12H IV 04/28/25 09:00 05/28/25 08:59 04/28/25 10:23 20 MG Glucagon (Glucagon 1mg Kit) 1 mg AD PRN IM HYPOGLYCEMIA PROTOCOL 04/28/25 03:30 05/28/25 03:29 Insulin Human Regular (humuLIN R 100 UNIT/ML 3ML) INSULIN SLIDING SCAL... ACHS SQ 04/28/25 07:30 05/28/25 07:29 Losartan Potassium (CozAAR 25MG TAB) 25 mg HSPRN PO 04/28/25 11:30 05/28/25 11:29 Magnesium Sulfate 50 ml @ 0 mls/hr PROTOCOL PRN IV OTHER [SEE ORDER COMMENTS] 04/28/25 03:30 05/28/25 03:29 Ondansetron HCl (zoFRAN 4MG INJ) 4 mg Q6H PRN IV NAUSEA/VOMITING 04/28/25 03:00 05/28/25 02:59 Potassium Chloride 100 ml @ 100 mls/hr AD PRN IV POTASSIUM PROTOCOL 04/28/25 03:30 05/28/25 03:29 Potassium Chloride (K-Dur/Klor-Con 20meq) 20 meq AD PRN PO POTASSIUM PROTOCOL 04/28/25 03:30 05/28/25 03:29 Potassium Chloride (KCl 10% Elixir 20meq/15ml) 20 meq AD PRN PO POTASSIUM PROTOCOL 04/28/25 03:30 11/17/25 03:29 Vitamin B Complex/ Vit C/Folic Acid (Nephrovite Tablet) 1 cap DAILY PO 04/29/25 09:00 05/29/25 08:59 DIAGNOSTICS / RADIOLOGY: [place] [id number] [id number] IMAGING REPORT Signed PATIENT: YVETTE GLASS JR MR#: [id number] : 1950 SEX: M AGE: 74 LOCATION: [facility] ORDER 230 STATUS: REG ER REPORT#: [id number] SERVICE 58 REASON: chf ORDERING PHYSICIAN: SENA RAMIREZ MD PROCEDURE: CXR1VW - CHEST 1VW EXAM: CR Chest, 1 view CLINICAL HISTORY: Shortness of breath. COMPARISON: 02/27/2011. FINDINGS: Mild cardiomegaly, pulmonary vascular congestion, and bilateral lower zone airspace disease. Questionable trace pleural effusions bilaterally. No pneumothorax. No acute osseous abnormality. IMPRESSION: Mild cardiomegaly, pulmonary vascular congestion, and bilateral lower zone airspace disease. Questionable trace pleural effusions bilaterally. The findings are new compared to the previous chest radiograph. /[place] DICTATED BY: TAMMI FOSTER Jr., MD DATE: 04/28/25121 ELECTRONICALLY SIGNED BY: TAMMI FOSTER Jr., MD DATE: 04/28/25121 [place] [id number] [id number] IMAGING REPORT Signed PATIENT: YVETTE GLASS JR MR#: [id number] : 1950 SEX: M AGE: 74 LOCATION: [facility] ORDER 0304 STATUS: ADM IN REPORT#: [id number] SERVICE 025 REASON: sob ORDERING PHYSICIAN: SAMIRA WELLSP PROCEDURE: ECHO CMP - ECHO 2-D COMPLETE APPROVED REPORT EXAM: Two-dimensional and M-mode echocardiogram with Doppler and color Doppler. INDICATION ICD: Shortness of breath R06.02 2D Dimensions RVDd 4.5 cm LVEF(%) 15.2 (>50%) LVED Vol(simp.) 205.0 mL IVSd 0.6 (0.7-1.1cm) FS(%) 7 % LVES Vol(simp.) 142.0 mL LVDd 6.1 (3.8-5.6cm) LA (2D) 5.0 (1.6-4.0cm) LVEF(%, simp.) 31 % PWd 0.6 (0.7-1.1cm) Ao Root(2D) 2.7 (2.0-3.7cm) LA ESV INDEX (BP) 37.50 mL/m2 LVDs 5.7 (2.5-4.0cm) LVOT diam 2.2 (1.8-2.4cm) IVC diam 2.5 cm Deformation Strain Apical 4 -7.2 % Apical 2 -7.8 % Apical 3 -5.1 % Global Strain -6.7 % M-Mode Dimensions EPSS 1.4 cm LA (MM) 6.1 (1.6-4.0cm) Ao Root(MM) 3.0 (2.0-3.7cm) Aortic Valve AoV Vmax 3.6 m/s Ao Peak GR 51.2 mmHg LVOT Vmax 0.9 m/s AoV VTI 0.8 m Ao Mean GR 32.8 mmHg LVOT VTI 0.20 m ARVIN (VMAX) 1.00 cm2 Al P1/2T 263 ms ARVIN (VTI) 0.9 cm2 Mitral Valve MV E Vmax 104.2 cm/s DECEL Time 106 ms MV A Vmax 50.7 cm/s P 1/2 T 72 ms E/A ratio 2.1 MVA (PHT) 3.1 cm2 TDI E/E' Medial 20.9 E/E' Lateral 16.9 Medial E' Peak V 4.99 cm/s Lateral E' Peak V 6.17 cm/s Pulmonary Valve PV Vmax 1.2 m/s PV VTI 0.22 m PV Mean GR 2.8 mmHg PV Peak GR 5.5 mmHg Left Ventricle The left ventricle is severely dilated. There is normal left ventricular wall thickness. LVEF is 30-35%. Cannot rule out left ventricular apical thrombus. Stage II diastolic dysfunction. Right Ventricle The right ventricle is mildly dilated. The right ventricular systolic function is normal. Atria LAE ADRIANO Aortic Valve The aortic valve is calcified and displays decreased opening. Moderate aortic regurgitation. Severe low flow low gradient aortic stenosis with ARVIN 0.9 cm2. Highest mean aortic valve gradient is 39mmHg. Peak aortic valve gradient is 5 8mmHg. PV 3.3 m/s. Mitral Valve Mitral valve leaflets appear normal. Mitral regurgitation is mild. There is no mitral valve stenosis. Tricuspid Valve The tricuspid valve is normal in structure. There is no tricuspid valve regurgitation noted. Pulmonic Valve The pulmonary valve is normal in structure and function. There is no pulmonic valvular regurgitation. Great Vessels The aortic root is normal in size. IVC is dilated and collapses <50% with inspiration. Pericardium No pericardial effusion. Conclusion The left ventricle is severely dilated. LVEF is 30-35%. Stage II diastolic dysfunction. Cannot rule out left ventricular apical thrombus. The right ventricle is mildly dilated. The right ventricular systolic function is normal. LAE ADRIANO The aortic valve is calcified and displays decreased opening. Moderate aortic regurgitation. Severe low flow low gradient aortic stenosis with ARVIN 0.9 cm2. Highest mean aortic valve gradient is 39mmHg. Peak aortic valve gradient is 58mmHg. PV 3.3 m/s. Mitral regurgitation is mild. IVC is dilated and collapses <50% with inspiration. No pericardial effusion. DICTATED BY: ALLYN PATTERSON MD DATE: 04/28/25 1000 ELECTRONICALLY SIGNED BY: ALLYN PATTERSON MD DATE: 04/28/25 4674 ASSESSMENT: Acute on chronic diastolic heart failure (HFrEF, EF 3035% per echo 04/28/25) NYHA Class III POA Severe low-flow, low-gradient aortic stenosis (ARVIN 0.9 cm) POA Mitral valve regurgitation POA Leukocytosis, mild Azotemia, POA Morbid obesity (BMI > 40) POA Hypertension POA Hyperlipidemia POA Type 2 Diabetes Mellitus POA Obstructive sleep apnea on CPAP POA PLAN: The patient remains admitted on the medical surgical floor. Acute on chronic diastolic heart failure (HFrEF, EF 3035% per echo 04/28/25) NYHA Class III POA * Likely precipitated by medication noncompliance and fluid overload. CXR: Pulmonary vascular congestion, bilateral lower lobe opacities and trace plural effusion. * Continue IV Furosemide (Lasix) 20 mg BID adjust to urine output and daily weight. * Strict I&O, daily weights, fluid restriction <2 L/day, low sodium diet. * Monitor renal function and electrolytes. * Transition to oral diuretic when euvolemic. * GDMT initiated: Coreg 6.25 BID, Losartan 25 mg, Jardiance 10 mg daily * Follow up with cardiology recommendations. Severe low-flow, low-gradient aortic stenosis (ARVIN 0.9 cm), POA * Contributing to chronic heart failure and exertional dyspnea. * Avoid hypotension; maintain adequate preload. * Monitor for syncope, angina, or worsening CHF symptoms. Hypertension * Currently stable; goal <130/80 mmHg. * Continue home antihypertensive regimen; monitor closely during diuresis to avoid hypotension. Type 2 Diabetes Mellitus * Continue on sliding scale insulin Leukocytosis, mild * Likely reactive from CHF or stress; no clear source of infection on imaging. * Monitor CBC; rule out infection if fever or clinical change. Azotemia * Likely prerenal due to congestion. * Trend BMP; adjust diuretic dosing accordingly. Replace electrolytes per protocol. Home medications were reconciled and reviewed. Consider continuing Potassium chloride 20mEQ based on daily labs. DVT Prophylaxis: Eliquis 2.5 mg BID GI Prophylaxis: Famotidine 20 mg daily AM Labs: CBC, BMP, BNP, Urinalysis. The case and management plan were discussed in detail with the patient and his . All questions were addressed, and the patient expressed understanding and agreement with the proposed plan. Further orders per hospitalization course. ATTESTATION BY PHYSICIAN I have seen and examined the patient. I reviewed the documentation, medical decision making, and treatment plan as noted by the resident physician above. I agree with the findings and plan of care. FARHAT SHERWOOD MD, MANALI MD Apr 28, 2025 16:48
[2025-04-28] MEDS ORDERED: FURO40TA5 PO (18:36)
[2025-04-29] VITALS (10 sets, daily range): BP systolic 118–145; BP diastolic 51–70; PULSE 62–79; RESP 18–20; TEMP 97.6–98.2; O2SAT 93–100
[2025-04-29 03:51] LABS: NUCLEATED RED BLOOD CELLS 0.0 % (0.0-0.19); PLATELET COUNT (AUTO) 281.0 K/uL (130-400); RED BLOOD CELL COUNT(AUTO) 4.39 MIL/uL (4.50-6.20); RED CELL DISTRIBUTION WIDTH 14.5 % (11.0-15.5); WHITE BLOOD COUNT (AUTO) 9.4 K/uL (4.8-10.8)
[2025-04-29 04:24] LABS: CREATININE 1.2 mg/dL (0.5-1.3); GLOMERULAR FILTR. RATE CALC 63.0 mL/min (>90); GLUCOSE,RANDOM 131.0 mg/dL (70-105); SODIUM SERUM 143.0 mmol/L (136-145); UREA NITROGEN, BLOOD 32.0 mg/dL (7-18)
[2025-04-29] MEDS: EMPAGLIFLOZIN 10MG TABLET PO SCH (09:09)
[2025-04-29] MEDS: Vitamin B Complex/Vit C/Folic Acid PO SCH (09:09)
--- NOTE | 2025-04-29 09:15 | NUR ---
NURSING NOTE IV inserted on 04/28/25: 20g to Right AC discontinued- IV site leaking. Will place new access.
--- NOTE | 2025-04-29 09:27 | NUR ---
NURSING NOTE Patient continues on Lasix BID q12h. Edema to bilateral lower extremity 2-3+. Patient sitting up in chair during assessment. Educated on elevating legs if in dependent position for too long. Weight on 04/28/25 = 267.8. Weight today, 04/29/25 = 266.0. Educated on fluid restriction of 1.5L. Patient still short of breath at rest when talking. Respirations shallow. Course, dry cough. Will continue to monitor.
--- NOTE | 2025-04-29 10:28 | PN ---
[facility] CARDIOLOGY PROGRESS NOTE Date Patient Seen: Apr 29, 2025 Time of Visit: 10:19 Interval History: [ No events] Physical Examination: GENERAL: [No acute distress.] HEAD: [Normal with no signs of head trauma.] EYES: [PERRLA, EOMI, conjunctiva and sclera normal.] ENT: [Hearing grossly intact, normal oropharynx.] NECK: [Supple without JVD. There is no tenderness, lymphadenopathy, or masses. No thyromegaly. Normal carotid upstrokes without bruits.] LUNGS: [Decreased breath sounds bilaterally HEART: [Normal rate and rhythm. ZACK] VASC: [Peripheral pulses +2 bilaterally.] ABD: [Bowel sounds normal, soft, nontender, no masses, no organomegaly. No audible bruits.] : [Not examined] LYMPH: [No lymphadenopathy noted.] EXT: [Trace bilateral lower extremity edema.] SKIN: [No rashes or lesions noted.] NEURO: [Awake, alert, and oriented x3. No focal sensory or strength deficits noted.] Laboratory: [ ] Hematology Labs: Test 04/29/25 03:39 04/28/25 06:00 Range/Units White Blood Count 9.4 # 4.8-10.8 K/uL Red Blood Count 4.39 L 4.50-6.20 MIL/uL Hemoglobin 13.2 L 14.0-18.0 g/dL Hematocrit 40.5 L 42-54 % Mean Corpuscular Volume 92.3 79-99 fL Mean Corpuscular Hemoglobin 30.1 27.0-33.0 pg Mean Corpuscular Hemoglobin Concent 32.6 32.0-36.0 g/dL Red Cell Distribution Width 14.5 11.0-15.5 % Platelet Count 281 130-400 K/uL Mean Platelet Volume 9.7 7.5-10.5 fL Nucleated Red Blood Cells 0.0 0.0-0.19 % Immature Granulocyte % (Auto) 0.8 0-1 % Neutrophils (%) (Auto) 69.3 40.0-77.0 % Lymphocytes (%) (Auto) 16.7 L 21.0-51.0 % Monocytes (%) (Auto) 11.4 3.0-13.0 % Eosinophils (%) (Auto) 1.3 0.0-8.0 % Basophils (%) (Auto) 0.5 0.0-5.0 % Neutrophils # (Auto) 9.4 H 1.8-7.7 K/uL Lymphocytes # (Auto) 2.3 1.0-4.8 K/uL Monocytes # (Auto) 1.6 H 0.1-1.0 K/uL Eosinophils # (Auto) 0.18 0.00-0.70 K/uL Basophils # (Auto) 0.07 0.00-0.20 K/uL Absolute Immature Granulocyte (auto 0.11 0-1 K/uL Chemistry Labs: Test 04/29/25 05:23 04/29/25 03:39 04/28/25 06:00 Range/Units Whole Blood Glucose 140 H 70-110 MG/DL Sodium Level 143 136-145 mmol/L Potassium Level 3.9 3.5-5.1 mmol/L Chloride Level 103 101-111 mmol/L Carbon Dioxide Level 28 21-32 mmol/L Blood Urea Nitrogen 32 H 7-18 mg/dL Creatinine 1.2 0.5-1.3 mg/dL Glomerular Filtration Rate Calc 63 >90 mL/min Random Glucose 131 H 70-105 mg/dL Total Calcium 9.0 8.5-10.1 mg/dL B-Type Natriuretic Peptide 351 H 0-100 pg/mL Magnesium Level 2.20 1.80-2.40 mg/dL Total Bilirubin 1.0 # 0.2-1.0 mg/dL Aspartate Amino Transf (AST/SGOT) 20 10-37 U/L Alanine Aminotransferase (ALT/SGPT) 26 12-78 U/L Alkaline Phosphatase 31 L 50-136 U/L Troponin I High Sensitivity 81 *H 4-75 ng/L Total Protein 7.1 6.0-8.3 g/dL Albumin 3.3 L 3.5-5.0 g/dL Diagnostics / Radiology: [Copy/Paste Echos/Imaging Report here] Impression and Plan: [Type 2 diabetes mellitus Hypertension Morbid obesity Hyperlipidemia Ischemic cardiomyopathy Low flow low gradient severe aortic stenosis ] Plan: [#HFrEF ICM - LVEF 30-35 % - NYHA III Compensated but not euvolemic on exam Lexiscan stress test in 2020 with large severe fixed defect from base to apex involves the entire lateral inferior wall corresponding to akinetic segments 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 Strict I's and O's and daily weights, continue Lasix 20 mg IV every 12 hours Optimize GDMT: Coreg 6.25 mg every 12 hours, [id number] mg daily, Jardiance 10 mg daily 2D echo with LVEF 30-35%, low flow low gradient severe aortic stenosis # low flow low gradient severe aortic stenosis -plan for diuresis and assess symptoms of severe aortic stenosis Thank you for this consult cardiology will continue to follow along. Oliva Patterson MD ] OLIVA PATTERSON MD Apr 29, 2025 10:28
--- NOTE | 2025-04-29 11:43 | NUR ---
DR RAIZA PATTERSON ROUNDING Dr. Patterson discussed ultrasound resuts with patient. EF 30-35%, consistent with previous study patient had. [facility] is [facility] and last visit was 3-4 months ago. Patient reports that he had reported to Dr. Shelton at that time that he was experiencing shortness of breath. Physician reported to patient condition of aortic valve, significant calcification. Plan of care is to continue to diurese. Physicians will then determine if symptoms are fluid overload related vs. valve related. Dr. Jalloh anticipated to round on patient tomorrow. Patient educated on contraindication of Nitroglycerin with narrowing valve. Will continue monitoring intake and output, continue with fluid restricted diet, daily weights.
--- NOTE | 2025-04-29 15:33 | PN ---
[facility] PROGRESS NOTE Date of Service: Apr 29, 2025 Time of Service: 15:32 HISTORY OF PRESENT ILLNESS: This is a 74 year old male with past medical history of CHF,Aortic stenosis,Mitral valve regurgitation, hypertension, hyperlipidemia, diabetes, morbid obesity and obstructive sleep apnea on CPAP at home who presents to the ED for complaints of shortness of breath.Patient reports he missed the dose of Lasix for the past 5 days and he will take the Lasix and missed the Lasix dose again for another 3 days because he was at the court everyday and Last he traveled and missed his dose of Lasix but he noticed has been short of breath and his urine has decreased and his legs are also swollen so he decided to come to the Ed for evaluation.Patient has an appointment with his nuclear medicine supervisor Dr.Blake Boyle on May. On examination patient is awake alert and oriented appears mildly short of breath on exertion, patient denies fever, cough, palpitation, chest pain, shortness of breaths signs. Latest vital signs temperature 99, heart rate 76, blood pressure 126/69 saturation 98% on 2 L nasal cannula. Labs: WBC 14 , neutrophils 71, hemoglobin 13, hematocrit 42 platelet 325 troponin 73, BNP 648, BUN 38, glucose 135, alkaline phos 25, albumin 3.4. Chest x-ray result revealed mild cardiomegaly, pulmonary vascular congestion and bilateral lower zone airspace disease. Questionable trace pleural effusion bilaterally. While in the ER patient received 2 mg of Bumex patient for further medical management. SUBJECTIVE: 04/28/2025: The patient was evaluated at bedside in the presence of the RN and a family member. He was observed sitting comfortably in a chair, appearing tired but without signs of acute respiratory distress. He remains on 2.0 L nasal cannula. The patient continues to receive furosemide 20 mg BID for diuresis. Cardiology, under the care of Dr. Patterson, has optimized medical management for congestive heart failure. Recent laboratory studies showed improvement in WBC count from 14.3 to 13.6 and a slight improvement in BNP from 648 to 621. Echocardiogram revealed a severely dilated left ventricle with an ejection fraction of 3035%, stage II diastolic dysfunction, a calcified aortic valve, moderate aortic regurgitation, and severe low-flow, low-gradient aortic stenosis with an aortic valve area of 0.9 cm. The plan is to continue diuresis and monitor the patients clinical and laboratory response. Further assessment and plan are outlined below. 04/29/2025: Patient was evaluated at bedside in the presence of RN and a family member in room 419. Was lying comfortably in his bed and showed no signs of acute respiratory distress. He was saturating well at 93% on room air and has been on 2 L via nasal cannula when asleep. Patient's BNP has downtrended to 351 today and has been responding very well to diuresis. Patient's admits to progressive shortness of breath over the last few months and says that he has severe aortic stenosis. Patient mentioned that Dr. Crawford we will be seeing him tomorrow to discuss about managing his aortic stenosis to better manage his ischemic cardiomyopathy. We will continue diuresing him with Lasix 20 mg IV q.12 and continue on GDMT with carvedilol 6.25 mg b.i.d., [id number] mg daily and Jardiance 10 mg daily. REVIEW OF SYSTEMS CONSTITUTIONAL: Denies fevers, chills, or night sweats. No unintentional weight loss reported. ENT: No hearing loss, otalgia, otorrhea, rhinitis, rhinorrhea, hoarseness, or sore throat. CARDIOVASCULAR: Denies any exertional angina, dyspnea on exertion, orthopnea, paroxysmal nocturnal dyspnea, palpitations, life-threatening arrhythmias, claudication. PULMONARY: + Shortness of breath, improved Denies cough, phlegm/sputum, hemoptysis, pleuritic chest pain. GENITOURINARY: Denies frequency, urgency, nocturia, hematuria or incontinence (Storage/Irritative symptoms.) Low urinary stream, straining to void, urinary intermittency or hesitancy, splitting of the voiding stream, terminal dribbling. ENDOCRINOLOGIC: Denies polyuria, polydipsia, polyphagia or heat/cold intolerances. PHYSICAL EXAM GENERAL APPEARANCE: The patient is awake, alert, and oriented,mildly shortness of breath NEUROLOGICAL: Cranial nerves II-XII grossly intact. Motor is 5/5 in bilateral upper and lower extremities proximal to distal. No sensory deficits. CHEST: Normal chest expansion. No Telemetry. LUNGS: Absence of any rales, rhonchi. Diminished b/l lung sounds, +expiratory wheezing CARDIOVASCULAR: Regular. S1 and S2 normal. No appreciable rubs, murmurs or gallops. ABDOMEN: Soft, nontender, and nondistended. There is no rebound, voluntary guarding, or rigidity.. EXTREMITIES: 1+ edema to both lower extremities and not cyanotic. No clubbing. Good capillary refill. SKIN: No skin breakdown. Vital Signs (last 8hr) Date Time Temp Pulse Resp B/P (MAP) Pulse Ox O2 Delivery O2 Flow Rate FiO2 04/29/25 12:07 98.1 77 18 140/60 93 Room Air 04/29/25 09:10 145/67 04/29/25 08:00 97.5 71 18 145/67 93 Room Air 04/29/25 08:00 93 Room Air* 0 21 LABS: Laboratory: Test 04/29/25 10:52 04/29/25 03:39 04/28/25 06:00 Range/Units Whole Blood Glucose 148 H 70-110 MG/DL White Blood Count 9.4 # 4.8-10.8 K/uL Red Blood Count 4.39 L 4.50-6.20 MIL/uL Hemoglobin 13.2 L 14.0-18.0 g/dL Hematocrit 40.5 L 42-54 % Mean Corpuscular Volume 92.3 79-99 fL Mean Corpuscular Hemoglobin 30.1 27.0-33.0 pg Mean Corpuscular Hemoglobin Concent 32.6 32.0-36.0 g/dL Red Cell Distribution Width 14.5 11.0-15.5 % Platelet Count 281 130-400 K/uL Mean Platelet Volume 9.7 7.5-10.5 fL Nucleated Red Blood Cells 0.0 0.0-0.19 % Sodium Level 143 136-145 mmol/L Potassium Level 3.9 3.5-5.1 mmol/L Chloride Level 103 101-111 mmol/L Carbon Dioxide Level 28 21-32 mmol/L Blood Urea Nitrogen 32 H 7-18 mg/dL Creatinine 1.2 0.5-1.3 mg/dL Glomerular Filtration Rate Calc 63 >90 mL/min Random Glucose 131 H 70-105 mg/dL Total Calcium 9.0 8.5-10.1 mg/dL B-Type Natriuretic Peptide 351 H 0-100 pg/mL Immature Granulocyte % (Auto) 0.8 0-1 % Neutrophils (%) (Auto) 69.3 40.0-77.0 % Lymphocytes (%) (Auto) 16.7 L 21.0-51.0 % Monocytes (%) (Auto) 11.4 3.0-13.0 % Eosinophils (%) (Auto) 1.3 0.0-8.0 % Basophils (%) (Auto) 0.5 0.0-5.0 % Neutrophils # (Auto) 9.4 H 1.8-7.7 K/uL Lymphocytes # (Auto) 2.3 1.0-4.8 K/uL Monocytes # (Auto) 1.6 H 0.1-1.0 K/uL Eosinophils # (Auto) 0.18 0.00-0.70 K/uL Basophils # (Auto) 0.07 0.00-0.20 K/uL Absolute Immature Granulocyte (auto 0.11 0-1 K/uL Magnesium Level 2.20 1.80-2.40 mg/dL Total Bilirubin 1.0 # 0.2-1.0 mg/dL Aspartate Amino Transf (AST/SGOT) 20 10-37 U/L Alanine Aminotransferase (ALT/SGPT) 26 12-78 U/L Alkaline Phosphatase 31 L 50-136 U/L Troponin I High Sensitivity 81 *H 4-75 ng/L Total Protein 7.1 6.0-8.3 g/dL Albumin 3.3 L 3.5-5.0 g/dL Current Medications Medications (Trade) Dose Ordered Sig/Dajuan Route PRN Reason Start Time Stop Time Status Last Admin Dose Admin Acetaminophen (TYLenol 325MG TAB) 650 mg Q4H PRN PO MILD PAIN (1-3) 04/28/25 03:00 05/28/25 02:59 Acetaminophen (TYLenol 325MG TAB) 650 mg Q6H PRN PO TEMPERATURE GREATER THAN 101.5 04/28/25 03:00 05/28/25 02:59 Albuterol (DUOneb) 1 UDVIAL Q6H PRN IH SHORTNESS OF BREATH 04/28/25 03:30 05/28/25 03:29 Albuterol (DUOneb) 1 udvial [id number] IH 04/28/25 06:00 05/28/25 05:59 04/29/25 02:16 1 UDVIAL Apixaban (EliquIS 2.5 mg) 2.5 mg BID PO 04/28/25 21:00 05/28/25 20:59 04/29/25 09:09 2.5 MG Atorvastatin Calcium (LIPItor 20MG) 20 mg HS PO 04/28/25 21:00 05/28/25 20:59 04/28/25 21:03 20 MG Carvedilol (Coreg 6.25MG) 6.25 mg BID PO 04/28/25 21:00 05/28/25 20:59 04/29/25 09:10 6.25 MG Dextrose (D50w) 50 ml AD PRN IV HYPOGLYCEMIA PROTOCOL 04/28/25 03:30 05/28/25 03:29 Empaglifozin (Jardiance 10mg) 10 mg DAILY PO 04/29/25 09:00 05/29/25 08:59 04/29/25 09:09 10 MG Famotidine (Pepcid 20mg Tab) 20 mg DAILY PO 04/28/25 09:00 05/28/25 08:59 04/29/25 09:11 20 MG Furosemide (LASix 20MG VIAL) 20 mg Q12H IV 04/28/25 09:00 04/28/25 20:12 DC 04/28/25 10:23 20 MG Furosemide (LASix 20MG VIAL) 20 mg Q12H IV 04/29/25 09:00 04/29/25 10:28 DC 04/29/25 09:09 20 MG Furosemide (LASix 20MG VIAL) 20 mg Q8H5 IV 04/29/25 10:30 05/29/25 08:59 04/29/25 11:04 20 MG Furosemide (LASix 40MG TAB) 40 mg BID PO 04/28/25 21:00 04/28/25 21:41 DC 04/28/25 21:03 40 MG Glucagon (Glucagon 1mg Kit) 1 mg AD PRN IM HYPOGLYCEMIA PROTOCOL 04/28/25 03:30 05/28/25 03:29 Insulin Human Regular (humuLIN R 100 UNIT/ML 3ML) INSULIN SLIDING SCAL... ACHS SQ 04/28/25 07:30 05/28/25 07:29 04/28/25 21:04 3 UNIT Losartan Potassium (CozAAR 25MG TAB) 25 mg DAILY PO 04/29/25 09:00 05/29/25 08:59 04/29/25 09:09 25 MG Losartan Potassium (CozAAR 25MG TAB) 25 mg HSPRN PO 04/28/25 11:30 04/28/25 20:13 DC Magnesium Sulfate 50 ml @ 0 mls/hr PROTOCOL PRN IV OTHER [SEE ORDER COMMENTS] 04/28/25 03:30 05/28/25 03:29 Ondansetron HCl (zoFRAN 4MG INJ) 4 mg Q6H PRN IV NAUSEA/VOMITING 04/28/25 03:00 05/28/25 02:59 Potassium Chloride 100 ml @ 100 mls/hr AD PRN IV POTASSIUM PROTOCOL 04/28/25 03:30 05/28/25 03:29 Potassium Chloride (K-Dur/Klor-Con 20meq) 20 meq AD PRN PO POTASSIUM PROTOCOL 04/28/25 03:30 05/28/25 03:29 Potassium Chloride (KCl 10% Elixir 20meq/15ml) 20 meq AD PRN PO POTASSIUM PROTOCOL 04/28/25 03:30 05/28/25 03:29 Vitamin B Complex/ Vit C/Folic Acid (Nephrovite Tablet) 1 cap DAILY PO 04/29/25 09:00 05/29/25 08:59 04/29/25 09:09 1 CAP DIAGNOSTICS / RADIOLOGY: [ ] PATIENT: YVETTE GLASS JR MR#: [id number] : 1950 SEX: M AGE: 74 LOCATION: [facility] ORDER 3 STATUS: ADM IN REPORT#: [id number] SERVICE REASON: sob ORDERING PHYSICIAN: SAMIRA WELLS PROCEDURE: ECHO CMP - ECHO 2-D COMPLETE APPROVED REPORT EXAM: Two-dimensional and M-mode echocardiogram with Doppler and color Doppler. INDICATION ICD: Shortness of breath R06.02 2D Dimensions RVDd 4.5 cm LVEF(%) 15.2 (>50%) LVED Vol(simp.) 205.0 mL IVSd 0.6 (0.7-1.1cm) FS(%) 7 % LVES Vol(simp.) 142.0 mL LVDd 6.1 (3.8-5.6cm) LA (2D) 5.0 (1.6-4.0cm) LVEF(%, simp.) 31 % PWd 0.6 (0.7-1.1cm) Ao Root(2D) 2.7 (2.0-3.7cm) LA ESV INDEX (BP) 37.50 mL/m2 LVDs 5.7 (2.5-4.0cm) LVOT diam 2.2 (1.8-2.4cm) IVC diam 2.5 cm Deformation Strain Apical 4 -7.2 % Apical 2 -7.8 % Apical 3 -5.1 % Global Strain -6.7 % M-Mode Dimensions EPSS 1.4 cm LA (MM) 6.1 (1.6-4.0cm) Ao Root(MM) 3.0 (2.0-3.7cm) Aortic Valve AoV Vmax 3.6 m/s Ao Peak GR 51.2 mmHg LVOT Vmax 0.9 m/s AoV VTI 0.8 m Ao Mean GR 32.8 mmHg LVOT VTI 0.20 m ARVIN (VMAX) 1.00 cm2 Al P1/2T 263 ms ARVIN (VTI) 0.9 cm2 Mitral Valve MV E Vmax 104.2 cm/s DECEL Time 106 ms MV A Vmax 50.7 cm/s P 1/2 T 72 ms E/A ratio 2.1 MVA (PHT) 3.1 cm2 TDI E/E' Medial 20.9 E/E' Lateral 16.9 Medial E' Peak V 4.99 cm/s Lateral E' Peak V 6.17 cm/s Pulmonary Valve PV Vmax 1.2 m/s PV VTI 0.22 m PV Mean GR 2.8 mmHg PV Peak GR 5.5 mmHg Left Ventricle The left ventricle is severely dilated. There is normal left ventricular wall th ickness. LVEF is 30-35%. Cannot rule out left ventricular apical thrombus. Stage II diastolic dysfunction. Right Ventricle The right ventricle is mildly dilated. The right ventricular systolic function is normal. Atria LAE ADRIANO Aortic Valve The aortic valve is calcified and displays decreased opening. Moderate aortic regurgitation. Severe low flow low gradient aortic stenosis with ARVIN 0.9 cm2. Highest mean aortic valve gradient is 39mmHg. Peak aortic valve gradient is 58mmHg. PV 3.3 m/s. Mitral Valve Mitral valve leaflets appear normal. Mitral regurgitation is mild. There is no mitral valve stenosis. Tricuspid Valve The tricuspid valve is normal in structure. There is no tricuspid valve regurgitation noted. Pulmonic Valve The pulmonary valve is normal in structure and function. There is no pulmonic valvular regurgitation. Great Vessels The aortic root is normal in size. IVC is dilated and collapses <50% with inspiration. Pericardium No pericardial effusion. Conclusion The left ventricle is severely dilated. LVEF is 30-35%. Stage II diastolic dysfunction. Cannot rule out left ventricular apical thrombus. The right ventricle is mildly dilated. The right ventricular systolic function is normal. LAE ADRIANO The aortic valve is calcified and displays decreased opening. Moderate aortic regurgitation. Severe low flow low gradient aortic stenosis with ARVIN 0.9 cm2. Highest mean aortic valve gradient is 39mmHg. Peak aortic valve gradient is 58mmHg. PV 3.3 m/s. Mitral regurgitation is mild. IVC is dilated and collapses <50% with inspiration. No pericardial effusion. DICTATED BY: ALLYN PATTERSON MD DATE: 04/28/25 1000 ELECTRONICALLY SIGNED BY: ALLYN PATTERSON MD DATE: 04/28/25 1346 ASSESSMENT: Acute on chronic diastolic heart failure (HFrEF, EF 3035% per echo 04/28/25) NYHA Class III POA Severe low-flow, low-gradient aortic stenosis (ARVIN 0.9 cm) POA Mitral valve regurgitation POA Leukocytosis, mild Azotemia, POA Morbid obesity (BMI > 40) POA Hypertension POA Hyperlipidemia POA Type 2 Diabetes Mellitus POA Obstructive sleep apnea on CPAP POA PLAN: The patient remains admitted on the medical surgical floor. Acute on chronic diastolic heart failure (HFrEF, EF 3035% per echo 04/28/25) NYHA Class III POA * Likely precipitated by medication noncompliance and fluid overload. CXR: Pulmonary vascular congestion, bilateral lower lobe opacities and trace plural effusion. * Continue IV Furosemide (Lasix) 20 mg BID adjust to urine output and daily weight. * Strict I&O, daily weights, fluid restriction <2 L/day, low sodium diet. * Monitor renal function and electrolytes. * Transition to oral diuretic when euvolemic. * GDMT initiated: Coreg 6.25 BID, Losartan 25 mg, Jardiance 10 mg daily * Follow up with cardiology recommendations. Severe low-flow, low-gradient aortic stenosis (ARVIN 0.9 cm), POA * Contributing to chronic heart failure and exertional dyspnea. * Avoid hypotension; maintain adequate preload. * Monitor for syncope, angina, or worsening CHF symptoms. Hypertension * Currently stable; goal <130/80 mmHg. * Continue home antihypertensive regimen; monitor closely during diuresis to avoid hypotension. Type 2 Diabetes Mellitus * Continue on sliding scale insulin Leukocytosis, mild, resolved * Likely reactive from CHF or stress; no clear source of infection on imaging. * WBC today was 9.4 * Monitor CBC; rule out infection if fever or clinical change. Azotemia * Likely prerenal due to congestion. * Trend BMP; adjust diuretic dosing accordingly. Replace electrolytes per protocol. Home medications were reconciled and reviewed. Consider continuing Potassium chloride 20mEQ based on daily labs. DVT Prophylaxis: Eliquis 2.5 mg BID GI Prophylaxis: Famotidine 20 mg daily AM Labs: CBC, BMP, BNP, Urinalysis. The case and management plan were discussed in detail with the patient and his . All questions were addressed, and the patient expressed understanding and agreement with the proposed plan. Further orders per hospitalization course. ATTESTATION BY PHYSICIAN I have seen and examined the patient. I reviewed the documentation, medical decision making, and treatment plan as noted by the resident physician above. I agree with the findings and plan of care. FARHAT SHERWOOD MD, HARSHAVARDHA MD Apr 29, 2025 15:33
--- NOTE | 2025-04-29 17:35 | NUR ---
cm note met with pt and states lives with spouse, ambulates with walker or cane, uses cpap at [facility], drives. [place]. states no dc needs. Addendum: 04/29/25 at 1741 by DUSTIN GUTHRIE CM Amended: Links added.
--- NOTE | 2025-04-29 20:13 | NUR ---
PARTIAL LASIX DOSE ADMINISTERED DUE TO IV SITE LEAKING Next scheduled dose within 2 hours will administer to complete one full dose
[2025-04-30] VITALS (9 sets, daily range): BP systolic 124–135; BP diastolic 52–73; PULSE 57–100; RESP 18–20; TEMP 97.6–98.3; O2SAT 92–99
[2025-04-30 05:52] LABS: NUCLEATED RED BLOOD CELLS 0.0 % (0.0-0.19); PLATELET COUNT (AUTO) 328.0 K/uL (130-400); RED BLOOD CELL COUNT(AUTO) 4.84 MIL/uL (4.50-6.20); RED CELL DISTRIBUTION WIDTH 14.5 % (11.0-15.5); WHITE BLOOD COUNT (AUTO) 10.5 K/uL (4.8-10.8)
[2025-04-30 06:01] LABS: CREATININE 1.3 mg/dL (0.5-1.3); GLOMERULAR FILTR. RATE CALC 57.0 mL/min (>90); GLUCOSE,RANDOM 135.0 mg/dL (70-105); SODIUM SERUM 142.0 mmol/L (136-145); UREA NITROGEN, BLOOD 37.0 mg/dL (7-18)
--- NOTE | 2025-04-30 12:41 | PN ---
[facility] PROGRESS NOTE Date of Service: Apr 30, 2025 Time of Service: 12:41 HISTORY OF PRESENT ILLNESS: This is a 74 year old male with past medical history of CHF,Aortic stenosis,Mitral valve regurgitation, hypertension, hyperlipidemia, diabetes, morbid obesity and obstructive sleep apnea on CPAP at home who presents to the ED for complaints of shortness of breath.Patient reports he missed the dose of Lasix for the past 5 days and he will take the Lasix and missed the Lasix dose again for another 3 days because he was at the court everyday and Last he traveled and missed his dose of Lasix but he noticed has been short of breath and his urine has decreased and his legs are also swollen so he decided to come to the Ed for evaluation.Patient has an appointment with 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 On examination patient is awake alert and oriented appears mildly short of breath on exertion, patient denies fever, cough, palpitation, chest pain, shortness of breaths signs. Latest vital signs temperature 99, heart rate 76, blood pressure 126/69 saturation 98% on 2 L nasal cannula. Labs: WBC 14 , neutrophils 71, hemoglobin 13, hematocrit 42 platelet 325 troponin 73, BNP 648, BUN 38, glucose 135, alkaline phos 25, albumin 3.4. Chest x-ray result revealed mild cardiomegaly, pulmonary vascular congestion and bilateral lower zone airspace disease. Questionable trace pleural effusion bilaterally. While in the ER patient received 2 mg of Bumex patient for further medical management. SUBJECTIVE: 04/28/2025: The patient was evaluated at bedside in the presence of the RN and a family member. He was observed sitting comfortably in a chair, appearing tired but without signs of acute respiratory distress. He remains on 2.0 L nasal cannula. The patient continues to receive furosemide 20 mg BID for diuresis. Cardiology, under the care of Dr. Patterson, has optimized medical management for congestive heart failure. Recent laboratory studies showed improvement in WBC count from 14.3 to 13.6 and a slight improvement in BNP from 648 to 621. Echocardiogram revealed a severely dilated left ventricle with an ejection fraction of 3035%, stage II diastolic dysfunction, a calcified aortic valve, moderate aortic regurgitation, and severe low-flow, low-gradient aortic stenosis with an aortic valve area of 0.9 cm. The plan is to continue diuresis and monitor the patients clinical and laboratory response. Further assessment and plan are outlined below. 04/29/2025: Patient was evaluated at bedside in the presence of RN and a family member in room 419. Was lying comfortably in his bed and showed no signs of acute respiratory distress. He was saturating well at 93% on room air and has been on 2 L via nasal cannula when asleep. Patient's BNP has downtrended to 351 today and has been responding very well to diuresis. Patient's admits to progressive shortness of breath over the last few months and says that he has severe aortic stenosis. Patient mentioned that Dr. Crawford we will be seeing him tomorrow to discuss about managing his aortic stenosis to better manage his ischemic cardiomyopathy. We will continue diuresing him with Lasix 20 mg IV q.12 and continue on GDMT with carvedilol 6.25 mg b.i.d., [id number] mg daily and Jardiance 10 mg daily. 04/30/2025: Patient was seen and evaluated bedside in room 419. Case discussed with RN, no acute overnight events. Patient was sitting comfortably on chair, denies chest pain, shortness of breath, palpitation. Patient says that he wants to go home [place]. Lab shows BNP 273, BUN , creatinine 1.3. We will continue Las ix 20 mg IV q.12h and GDMT with carvedilol 6.25 mg b.i.d., [id number] mg daily and Jardiance 10 mg daily. We will discharge him tomorrow after getting clearance from Cardiology. REVIEW OF SYSTEMS CONSTITUTIONAL: Denies fevers, chills, or night sweats. No unintentional weight loss reported. ENT: No hearing loss, otalgia, otorrhea, rhinitis, rhinorrhea, hoarseness, or sore throat. CARDIOVASCULAR: Denies any exertional angina, dyspnea on exertion, orthopnea, paroxysmal nocturnal dyspnea, palpitations, life-threatening arrhythmias, claudication. PULMONARY: + Shortness of breath, improved Denies cough, phlegm/sputum, hemoptysis, pleuritic chest pain. GENITOURINARY: Denies frequency, urgency, nocturia, hematuria or incontinence (Storage/Irritative symptoms.) Low urinary stream, straining to void, urinary intermittency or hesitancy, splitting of the voiding stream, terminal dribbling. ENDOCRINOLOGIC: Denies polyuria, polydipsia, polyphagia or heat/cold in tolerances. PHYSICAL EXAM GENERAL APPEARANCE: The patient is awake, alert, and oriented,mildly shortness of breath NEUROLOGICAL: Cranial nerves II-XII grossly intact. Motor is 5/5 in bilateral upper and lower extremities proximal to distal. No sensory deficits. CHEST: Normal chest expansion. No Telemetry. LUNGS: Absence of any rales, rhonchi. Diminished b/l lung sounds, +expiratory wheezing CARDIOVASCULAR: Regular. S1 and S2 normal. No appreciable rubs, murmurs or gallops. ABDOMEN: Soft, nontender, and nondistended. There is no rebound, voluntary guarding, or rigidity.. EXTREMITIES: 1+ edema to both lower extremities and not cyanotic. No clubbing. Good capillary refill. SKIN: No skin breakdown. Vital Signs (last 8hr) Date Time Temp Pulse Resp B/P (MAP) Pulse Ox O2 Delivery O2 Flow Rate FiO2 04/30/25 11:55 98.1 63 18 127/56 94 Room Air 04/30/25 09:50 79 18 21 100 20 21 04/30/25 09:29 127/56 04/30/25 08:00 94 Room Air* 0 21 04/30/25 07:52 97.7 57 18 127/56 94 Room Air 21 04/30/25 06:23 60 20 N/Cannula Low lpm 1.0 24 LABS: Laboratory: Test 04/30/25 11:30 04/30/25 05:19 Range/Units Whole Blood Glucose 128 H 70-110 MG/DL White Blood Count 10.5 4.8-10.8 K/uL Red Blood Count 4.84 4.50-6.20 MIL/uL Hemoglobin 14.3 14.0-18.0 g/dL Hematocrit 45.1 42-54 % Mean Corpuscular Volume 93.2 79-99 fL Mean Corpuscular Hemoglobin 29.5 27.0-33.0 pg Mean Corpuscular Hemoglobin Concent 31.7 L 32.0-36.0 g/dL Red Cell Distribution Width 14.5 11.0-15.5 % Platelet Count 328 130-400 K/uL Mean Platelet Volume 9.9 7.5-10.5 fL Nucleated Red Blood Cells 0.0 0.0-0.19 % Sodium Level 142 136-145 mmol/L Potassium Level 3.9 3.5-5.1 mmol/L Chloride Level 102 101-111 mmol/L Carbon Dioxide Level 32 21-32 mmol/L Blood Urea Nitrogen 37 H 7-18 mg/dL Creatinine 1.3 0.5-1.3 mg/dL Glomerular Filtration Rate Calc 57 >90 mL/min Random Glucose 135 H 70-105 mg/dL Total Calcium 9.2 8.5-10.1 mg/dL B-Type Natriuretic Peptide 273 H 0-100 pg/mL Current Medications Medications (Trade) Dose Ordered Sig/Dajuan Route PRN Reason Start Time Stop Time Status Last Admin Dose Admin Acetaminophen (TYLenol 325MG TAB) 650 mg Q4H PRN PO MILD PAIN (1-3) 04/28/25 03:00 05/28/25 02:59 Acetaminophen (TYLenol 325MG TAB) 650 mg Q6H PRN PO TEMPERATURE GREATER THAN 101.5 04/28/25 03:00 05/28/25 02:59 Albuterol (DUOneb) 1 UDVIAL Q6H PRN IH SHORTNESS OF BREATH 04/28/25 03:30 05/28/25 03:29 Albuterol (DUOneb) 1 udvial [id number] IH 04/28/25 06:00 05/28/25 05:59 04/29/25 02:16 1 UDVIAL Apixaban (EliquIS 2.5 mg) 2.5 mg BID PO 04/28/25 21:00 05/28/25 20:59 04/30/25 09:28 2.5 MG Atorvastatin Calcium (LIPItor 20MG) 20 mg HS PO 04/28/25 21:00 05/28/25 20:59 04/29/25 20:34 20 MG Carvedilol (Coreg 6.25MG) 6.25 mg BID PO 04/28/25 21:00 05/28/25 20:59 04/30/25 09:29 6.25 MG Dextrose (D50w) 50 ml AD PRN IV HYPOGLYCEMIA PROTOCOL 04/28/25 03:30 05/28/25 03:29 Empaglifozin (Jardiance 10mg) 10 mg DAILY PO 04/29/25 09:00 05/29/25 08:59 04/30/25 09:29 10 MG Famotidine (Pepcid 20mg Tab) 20 mg DAILY PO 04/28/25 09:00 05/28/25 08:59 04/30/25 09:29 20 MG Furosemide (LASix 20MG VIAL) 20 mg Q12H IV 04/28/25 09:00 04/28/25 20:12 DC 04/28/25 10:23 20 MG Furosemide (LASix 20MG VIAL) 20 mg Q12H IV 04/29/25 09:00 04/29/25 10:28 DC 04/29/25 09:09 20 MG Furosemide (LASix 20MG VIAL) 20 mg Q8H5 IV 04/29/25 10:30 05/29/25 08:59 04/30/25 05:08 20 MG Furosemide (LASix 40MG TAB) 40 mg BID PO 04/28/25 21:00 04/28/25 21:41 DC 04/28/25 21:03 40 MG Glucagon (Glucagon 1mg Kit) 1 mg AD PRN IM HYPOGLYCEMIA PROTOCOL 04/28/25 03:30 05/28/25 03:29 Insulin Human Regular (humuLIN R 100 UNIT/ML 3ML) INSULIN SLIDING SCAL... ACHS SQ 04/28/25 07:30 05/28/25 07:29 04/29/25 21:01 3 UNIT Losartan Potassium (CozAAR 25MG TAB) 25 mg DAILY PO 04/29/25 09:00 04/30/25 12:03 DC 04/30/25 09:29 25 MG Losartan Potassium (CozAAR 25MG TAB) 25 mg HSPRN PO 04/28/25 11:30 04/28/25 20:13 DC Magnesium Sulfate 50 ml @ 0 mls/hr PROTOCOL PRN IV OTHER [SEE ORDER COMMENTS] 04/28/25 03:30 05/28/25 03:29 Ondansetron HCl (zoFRAN 4MG INJ) 4 mg Q6H PRN IV NAUSEA/VOMITING 04/28/25 03:00 05/28/25 02:59 Potassium Chloride 100 ml @ 100 mls/hr AD PRN IV POTASSIUM PROTOCOL 04/28/25 03:30 05/28/25 03:29 Potassium Chloride (K-Dur/Klor-Con 20meq) 20 meq AD PRN PO POTASSIUM PROTOCOL 04/28/25 03:30 05/28/25 03:29 Potassium Chloride (KCl 10% Elixir 20meq/15ml) 20 meq AD PRN PO POTASSIUM PROTOCOL 04/28/25 03:30 05/28/25 03:29 Sacubitril/ Valsartan (Entresto 24 Mg-26 Mg Tablet) 1 each BID PO 04/30/25 21:00 05/30/25 20:59 Vitamin B Complex/ Vit C/Folic Acid (Nephrovite Tablet) 1 cap DAILY PO 04/29/25 09:00 05/29/25 08:59 04/30/25 09:28 1 [facility]IOLOGY: [place] [id number] [address] [id number] IMAGING REPORT Signed PATIENT: YVETTE GLASS JR MR#: [id number] : 1950 SEX: M AGE: 74 LOCATION: [facility] ORDER 0304 STATUS: ADM IN REPORT#: [id number] SERVICE [id number] REASON: sob ORDERING PHYSICIAN: SAMIRA WELLS PROCEDURE: ECHO CMP - ECHO 2-D COMPLETE APPROVED REPORT EXAM: Two-dimensional and M-mode echocardiogram with Doppler and color Doppler. INDICATION ICD: Shortness of breath R06.02 2D Dimensions RVDd 4.5 cm LVEF(%) 15.2 (>50%) LVED Vol(simp.) 205.0 mL IVSd 0.6 (0.7-1.1cm) FS(%) 7 % LVES Vol(simp.) 142.0 mL LVDd 6.1 (3.8-5.6cm) LA (2D) 5.0 (1.6-4.0cm) LVEF(%, simp.) 31 % PWd 0.6 (0.7-1.1cm) Ao Root(2D) 2.7 (2.0-3.7cm) LA ESV INDEX (BP) 37.50 mL/m2 LVDs 5.7 (2.5-4.0cm) LVOT diam 2.2 (1.8-2.4cm) IVC diam 2.5 cm Deformation Strain Apical 4 -7.2 % Apical 2 -7.8 % Apical 3 -5.1 % Global Strain -6.7 % M-Mode Dimensions EPSS 1.4 cm LA (MM) 6.1 (1.6-4.0cm) Ao Root(MM) 3.0 (2.0-3.7cm) Aortic Valve AoV Vmax 3.6 m/s Ao Peak GR 51.2 mmHg LVOT Vmax 0.9 m/s AoV VTI 0.8 m Ao Mean GR 32.8 mmHg LVOT VTI 0.20 m ARVIN (VMAX) 1.00 cm2 Al P1/2T 263 ms ARVIN (VTI) 0.9 cm2 Mitral Valve MV E Vmax 104.2 cm/s DECEL Time 106 ms MV A Vmax 50.7 cm/s P 1/2 T 72 ms E/A ratio 2.1 MVA (PHT) 3.1 cm2 TDI E/E' Medial 20.9 E/E' Lateral 16.9 Medial E' Peak V 4.99 cm/s Lateral E' Peak V 6.17 cm/s Pulmonary Valve PV Vmax 1.2 m/s PV VTI 0.22 m PV Mean GR 2.8 mmHg PV Peak GR 5.5 mmHg Left Ventricle The left ventricle is severely dilated. There is normal left ventricular wall thickness. LVEF is 30-35%. Cannot rule out left ventricular apical thrombus. Stage II diastolic dysfunction. Right Ventricle The right ventricle is mildly dilated. The right ventricular systolic function is normal. Atria LAE ADRIANO Aortic Valve The aortic valve is calcified and displays decreased opening. Moderate aortic regurgitation. Severe low flow low gradient aortic stenosis with ARVIN 0.9 cm2. Highest mean aortic valve gradient is 39mmHg. Peak aortic valve gradient is 58mmHg. PV 3.3 m/s. Mitral Valve Mitral valve leaflets appear normal. Mitral regurgitation is mild. There is no mitral valve stenosis. Tricuspid Valve The tricuspid valve is normal in structure. There is no tricuspid valve regurgitation noted. Pulmonic Valve The pulmonary valve is normal in structure and function. There is no pulmonic valvular regurgitation. Great Vessels The aortic root is normal in size. IVC is dilated and collapses <50% with inspiration. Pericardium No pericardial effusion. Conclusion The left ventricle is severely dilated. LVEF is 30-35%. Stage II diastolic dysfunction. Cannot rule out left ventricular apical thrombus. The right ventricle is mildly dilated. The right ventricular systolic function is normal. LAE ADRIANO The aortic valve is calcified and displays decreased opening. Moderate aortic regurgitation. Severe low flow low gradient aortic stenosis with ARVIN 0.9 cm2. Highest mean aortic valve gradient is 39mmHg. Peak aortic valve gradient is 58mmHg. PV 3.3 m/s. Mitral regurgitation is mild. IVC is dilated and collapses <50% with inspiration. No pericardial effusion. DICTATED BY: ALLYN PATTERSON MD DATE: 04/28/25 1000 ELECTRONICALLY SIGNED BY: ALLYN PATTERSON MD DATE: 04/28/25 1346 ASSESSMENT: Acute on chronic diastolic heart failure (HFrEF, EF 3035% per echo 04/28/25) NYHA Class III POA Severe low-flow, low-gradient aortic stenosis (ARVIN 0.9 cm) POA Mitral valve regurgitation POA Leukocytosis, mild Azotemia, POA Morbid obesity (BMI > 40) POA Hypertension POA Hyperlipidemia POA Type 2 Diabetes Mellitus POA Obstructive sleep apnea on CPAP POA PLAN: The patient remains admitted on the medical surgical floor. Acute on chronic diastolic heart failure (HFrEF, EF 3035% per echo 04/28/25) NYHA Class III POA * Likely precipitated by medication noncompliance and fluid overload. CXR: Pulmonary vascular congestion, bilateral lower lobe opacities and trace plural effusion. * Continue IV Furosemide (Lasix) 20 mg BID adjust to urine output and daily weight. * Strict I&O, daily weights, fluid restriction <2 L/day, low sodium diet. * Monitor renal function and electrolytes. * Transition to oral diuretic when euvolemic. * GDMT initiated: Coreg 6.25 BID, Losartan 25 mg, Jardiance 10 mg daily * Follow up with cardiology recommendations. Severe low-flow, low-gradient aortic stenosis (ARVIN 0.9 cm), POA * Contributing to chronic heart failure and exertional dyspnea. * Avoid hypotension; maintain adequate preload. * Monitor for syncope, angina, or worsening CHF symptoms. Hypertension * Currently stable; goal <130/80 mmHg. * Continue home antihypertensive regimen; monitor closely during diuresis to avoid hypotension. Type 2 Diabetes Mellitus * Continue on sliding scale insulin Leukocytosis, mild, resolved * Likely reactive from CHF or stress; no clear source of infection on imaging. * WBC today was 10.5 * Monitor CBC; rule out infection if fever or clinical change. Azotemia * Likely prerenal due to congestion. * Trend BMP; adjust diuretic dosing accordingly. Replace electrolytes per protocol. Home medications were reconciled and reviewed. Consider continuing Potassium chloride 20mEQ based on daily labs. DVT Prophylaxis: Eliquis 2.5 mg BID GI Prophylaxis: Famotidine 20 mg daily The case and management plan were discussed in detail with the patient and his . All questions were addressed, and the patient expressed understanding and agreement with the proposed plan. Further orders per hospitalization course. ATTESTATION BY PHYSICIAN I have seen and examined the patient. I reviewed the documentation, medical decision making, and treatment plan as noted by the resident above. I agree with the findings and plan of care. Tim Lomax IV, MD, ADIL SHAH QUADRI MD Apr 30, 2025 12:41
--- NOTE | 2025-04-30 15:47 | PN ---
[facility] CARDIOLOGY PROGRESS NOTE Date Patient Seen: Apr 30, 2025 Time of Visit: 15:43 Interval History: [ No events m overnight , the patient denies any cardiac symptoms or anginal equivalents. ] Physical Examination: GENERAL: [No acute distress.] HEAD: [Normal with no signs of head trauma.] EYES: [PERRLA, EOMI, conjunctiva and sclera normal.] ENT: [Hearing grossly intact, normal oropharynx.] NECK: [Supple without JVD. There is no tenderness, lymphadenopathy, or masses. No thyromegaly. Normal carotid upstrokes without bruits.] LUNGS: [Decreased breath sounds bilaterally HEART: [Normal rate and rhythm. ZACK] VASC: [Peripheral pulses +2 bilaterally.] ABD: [Bowel sounds normal, soft, nontender, no masses, no organomegaly. No audible bruits.] : [Not examined] LYMPH: [No lymphadenopathy noted.] EXT: [Trace bilateral lower extremity edema.] SKIN: [No rashes or lesions noted.] NEURO: [Awake, alert, and oriented x3. No focal sensory or strength deficits noted.] Laboratory: [ ] Hematology Labs: Test 04/30/25 05:19 Range/Units White Blood Count 10.5 4.8-10.8 K/uL Red Blood Count 4.84 4.50-6.20 MIL/uL Hemoglobin 14.3 14.0-18.0 g/dL Hematocrit 45.1 42-54 % Mean Corpuscular Volume 93.2 79-99 fL Mean Corpuscular Hemoglobin 29.5 27.0-33.0 pg Mean Corpuscular Hemoglobin Concent 31.7 L 32.0-36.0 g/dL Red Cell Distribution Width 14.5 11.0-15.5 % Platelet Count 328 130-400 K/uL Mean Platelet Volume 9.9 7.5-10.5 fL Nucleated Red Blood Cells 0.0 0.0-0.19 % Chemistry Labs: Test 04/30/25 11:30 04/30/25 05:19 Range/Units Whole Blood Glucose 128 H 70-110 MG/DL Sodium Level 142 136-145 mmol/L Potassium Level 3.9 3.5-5.1 mmol/L Chloride Level 102 101-111 mmol/L Carbon Dioxide Level 32 21-32 mmol/L Blood Urea Nitrogen 37 H 7-18 mg/dL Creatinine 1.3 0.5-1.3 mg/dL Glomerular Filtration Rate Calc 57 >90 mL/min Random Glucose 135 H 70-105 mg/dL Total Calcium 9.2 8.5-10.1 mg/dL B-Type Natriuretic Peptide 273 H 0-100 pg/mL Diagnostics / Radiology: [Copy/Paste Echos/Imaging Report here] Impression and Plan: [Type 2 diabetes mellitus Hypertension Morbid obesity Hyperlipidemia Ischemic cardiomyopathy Low flow low gradient severe aortic stenosis ] Plan: [#HFrEF ICM - LVEF 30-35 % - NYHA III Compensated but not euvolemic on exam Lexiscan stress test in 2020 with large severe fixed defect from base to apex in volves the entire lateral inferior wall corresponding to akinetic segments 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 Strict I's and O's and daily weights, continue Lasix 20 mg IV every 8 hours Optimize GDMT: Coreg 6.25 mg every 12 hours, Jardiance 10 mg daily. Cr 1.3 Stop Losartan and transition to Entresto 24/26 mg every 12 hrs 2D echo with LVEF 30-35%, low flow low gradient severe aortic stenosis # low flow low gradient severe aortic stenosis -plan for diuresis and assess symptoms of severe aortic stenosis Plan for outpatient evaluation for TAVR vs SAVR Thank you for this consult cardiology will continue to follow along. Josh Patterson MD ] ATTESTATION BY PHYSICIAN I have seen and examined the patient, reviewed the above documentation, participated in medical decision making, made necessary modifications, and agree with the treatment plan as documented by my mid-level provider above. MD MARIA GUADALUPE Soliman JAMES R MD Apr 30, 2025 15:47
[2025-04-30] MEDS: SACUBITRIL/VALSARTAN 1 EACH TABLET PO SCH (22:25)
[2025-05-01] VITALS (11 sets, daily range): BP systolic 113–135; BP diastolic 59–68; PULSE 61–79; RESP 18–21; TEMP 97.5–98; O2SAT 92–97
[2025-05-01 05:22] LABS: NUCLEATED RED BLOOD CELLS 0.0 % (0.0-0.19); PLATELET COUNT (AUTO) 358.0 K/uL (130-400); RED BLOOD CELL COUNT(AUTO) 4.89 MIL/uL (4.50-6.20); RED CELL DISTRIBUTION WIDTH 14.4 % (11.0-15.5); WHITE BLOOD COUNT (AUTO) 10.0 K/uL (4.8-10.8)
[2025-05-01 05:47] LABS: CREATININE 1.5 mg/dL (0.5-1.3); GLOMERULAR FILTR. RATE CALC 48.0 mL/min (>90); GLUCOSE,RANDOM 145.0 mg/dL (70-105); SODIUM SERUM 143.0 mmol/L (136-145); UREA NITROGEN, BLOOD 40.0 mg/dL (7-18)
--- NOTE | 2025-05-01 06:30 | PN ---
[facility] CARDIOLOGY PROGRESS NOTE Date Patient Seen: May 01, 2025 Time of Visit: 06:21 Problem List: CHF exacerbation after medication noncompliance Type 2 diabetes mellitus Hypertension Morbid obesity Hyperlipidemia Ischemic cardiomyopathy Low flow low gradient severe aortic stenosis KRISTI Pulmonary HTN, secondary to valvular dysfunction Interval History: Pt continues with diuresis. He is currently hemodynamically stable. Creatinine increasing so we'll back off on the diuretics today. He has continued on room air and saturations remain in the 94% range. Pt may benefit from eval of home oxygen need prior to dc. He is on chronic anticoagulation with eliquis at low dose, will clarify reason with pt. Could not rule out Ventricular thrombus on echo, hypokinetic, may need SUE. Pt need to be able to lie flat. Physical Examination: GENERAL: [Elderly, obese, No acute distress.] HEAD: [Normal with no signs of head trauma.] EYES: [PERRLA, EOMI, conjunctiva and sclera normal.] ENT: [Hearing grossly intact, normal oropharynx.] NECK: [Short, thick, Supple with improved JVD. There is no tenderness, lymphadenopathy, or masses. No thyromegaly. Normal carotid upstrokes without bruits.] LUNGS: [Decreased breath sounds bilaterally HEART: [Normal rate and rhythm. +Systolic murmur] VASC: [Peripheral pulses +2 bilaterally.] ABD: [Bowel sounds normal, obese, soft, nontender, no masses, no organomegaly. No audible bruits.] : [Not examined] LYMPH: [No lymphadenopathy noted.] EXT: +1 bilateral lower extremity edema.] SKIN: [No rashes or lesions noted.] NEURO: [Awake, alert, and oriented x3. No focal sensory or strength deficits noted.] Laboratory: [ ] Hematology Labs: Test 05/01/25 04:51 Range/Units White Blood Count 10.0 4.8-10.8 K/uL Red Blood Count 4.89 4.50-6.20 MIL/uL Hemoglobin 14.5 14.0-18.0 g/dL Hematocrit 45.5 42-54 % Mean Corpuscular Volume 93.0 79-99 fL Mean Corpuscular Hemoglobin 29.7 27.0-33.0 pg Mean Corpuscular Hemoglobin Concent 31.9 L 32.0-36.0 g/dL Red Cell Distribution Width 14.4 11.0-15.5 % Platelet Count 358 130-400 K/uL Mean Platelet Volume 9.8 7.5-10.5 fL Nucleated Red Blood Cells 0.0 0.0-0.19 % Chemistry Labs: Test 05/01/25 05:38 05/01/25 04:51 04/30/25 16:05 Range/Units Whole Blood Glucose 153 H 70-110 MG/DL Sodium Level 143 136-145 mmol/L Potassium Level 4.1 3.5-5.1 mmol/L Chloride Level 103 101-111 mmol/L Carbon Dioxide Level 33 H 21-32 mmol/L Blood Urea Nitrogen 40 H 7-18 mg/dL Creatinine 1.5 H 0.5-1.3 mg/dL Glomerular Filtration Rate Calc 48 >90 mL/min Random Glucose 145 H 70-105 mg/dL Total Calcium 9.3 8.5-10.1 mg/dL B-Type Natriuretic Peptide 293 H 0-100 pg/mL Bedside Glucose Comment Notified Nurse Diagnostics / Radiology: [Copy/Paste Echos/Imaging Report here] Plan: [#HFrEF ICM - LVEF 30-35 % - NYHA III Compensated currently Lexiscan stress test in 2020 with large severe fixed defect from base to apex involves the entire lateral inferior wall corresponding to akinetic segments 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 Monitor renal function Continue Entresto 24/26 mg every 12 hrs 2D echo with LVEF 30-35%, low flow low gradient severe aortic stenosis # low flow low gradient severe aortic stenosis -plan for diuresis and assess symptoms of severe aortic stenosis Plan for outpatient evaluation for TAVR vs SAVR - Regarding eliquis 2.5mg po bid, continue for now, may need to increase, considering need for SUE to r/o intraventricular thrombus once able to lie flat. Thank you for this consult cardiology will continue to follow along. SARA POTTERFabiola May 01, 2025 06:30
--- NOTE | 2025-05-01 11:56 | PN ---
[facility] PROGRESS NOTE Date of Service: May 01, 2025 Time of Service: 11:56 HISTORY OF PRESENT ILLNESS: This is a 74 year old male with past medical history of CHF,Aortic stenosis,Mitral valve regurgitation, hypertension, hyperlipidemia, diabetes, morbid obesity and obstructive sleep apnea on CPAP at home who presents to the ED for complaints of shortness of breath.Patient reports he missed the dose of Lasix for the past 5 days and he will take the Lasix and missed the Lasix dose again for another 3 days because he was at the court everyday and Last he traveled and missed his dose of Lasix but he noticed has been short of breath and his urine has decreased and his legs are also swollen so he decided to come to the Ed for evaluation.Patient has an appointment with his dental scheduler Dr.Blake Boyle on May. On examination patient is awake alert and oriented appears mildly short of breath on exertion, patient denies fever, cough, palpitation, chest pain, shortness of breaths signs. Latest vital signs temperature 99, heart rate 76, blood pressure 126/69 saturation 98% on 2 L nasal cannula. Labs: WBC 14 , neutrophils 71, hemoglobin 13, hematocrit 42 platelet 325 troponin 73, BNP 648, BUN 38, glucose 135, alkaline phos 25, albumin 3.4. Chest x-ray result revealed mild cardiomegaly, pulmonary vascular congestion and bilateral lower zone airspace disease. Questionable trace pleural effusion bilaterally. While in the ER patient received 2 mg of Bumex patient for further medical management. SUBJECTIVE: 04/28/2025: The patient was evaluated at bedside in the presence of the RN and a family member. He was observed sitting comfortably in a chair, appearing tired but without signs of acute respiratory distress. He remains on 2.0 L nasal cannula. The patient continues to receive furosemide 20 mg BID for diuresis. Cardiology, under the care of Dr. Patterson, has optimized medical management for congestive heart failure. Recent laboratory studies showed improvement in WBC count from 14.3 to 13.6 and a slight improvement in BNP from 648 to 621. Echocardiogram revealed a severely dilated left ventricle with an ejection fraction of 3035%, stage II diastolic dysfunction, a calcified aortic valve, moderate aortic regurgitation, and severe low-flow, low-gradient aortic stenosis with an aortic valve area of 0.9 cm. The plan is to continue diuresis and monitor the patients clinical and laboratory response. Further assessment and plan are outlined below. 04/29/2025: Patient was evaluated at bedside in the presence of RN and a family member in room 419. Was lying comfortably in his bed and showed no signs of acute respiratory distress. He was saturating well at 93% on room air and has been on 2 L via nasal cannula when asleep. Patient's BNP has downtrended to 351 today and has been responding very well to diuresis. Patient's admits to progressive shortness of breath over the last few months and says that he has severe aortic stenosis. Patient mentioned that Dr. Crawford we will be seeing him tomorrow to discuss about managing his aortic stenosis to better manage his ischemic cardiomyopathy. We will continue diuresing him with Lasix 20 mg IV q.12 and continue on GDMT with carvedilol 6.25 mg b.i.d., [id number] mg daily and Jardiance 10 mg daily. 04/30/2025: Patient was seen and evaluated bedside in room 419. Case discussed with RN, no acute overnight events. Patient was sitting comfortably on chair, denies chest pain, shortness of breath, palpitation. Patient says that he wants to go home [place]. Lab shows BNP 273, BUN , creatinine 1.3. We will continue Las ix 20 mg IV q.12h and GDMT with carvedilol 6.25 mg b.i.d., [id number] mg daily and Jardiance 10 mg daily. We will discharge him tomorrow after getting clearance from Cardiology. 05/01/2025: Patient was seen and evaluated bedside in room 419. Case discussed with RN, no acute overnight events. Patient is started on Lasix 40 mg p.o. once daily, and Entresto 24/26 mg twice daily and stopped IV Lasix and losartan. Cardiology recommended SUE to rule out intraventricular thrombus, patient is scheduled for SUE in a.m. tomorrow. Cardiology on board, we will follow up with the recommendations. REVIEW OF SYSTEMS CONSTITUTIONAL: Denies fevers, chills, or night sweats. No unintentional weight loss reported. ENT: No hearing loss, otalgia, otorrhea, rhinitis, rhinorrhea, hoarseness, or sore throat. CARDIOVASCULAR: Denies any exertional angina, dyspnea on exertion, orthopnea, paroxysmal nocturnal dyspnea, palpitations, life-threatening arrhythmias, claudication. PULMONARY: + Shortness of breath, improved Denies cough, phlegm/sputum, hemoptysis, pleuritic chest pain. GENITOURINARY: Denies frequency, urgency, nocturia, hematuria or incontinence (Storage/Irritative symptoms.) Low urinary stream, straining to void, urinary intermittency or hesitancy, splitting of the voiding stream, terminal dribbling. ENDOCRINOLOGIC: Denies polyuria, polydipsia, polyphagia or heat/cold intolerances. PHYSICAL EXAM GENERAL APPEARANCE: The patient is awake, alert, and oriented,mildly shortness of breath NEUROLOGICAL: Cranial nerves II-XII grossly intact. Motor is 5/5 in bilateral upper and lower extremities proximal to distal. No sensory deficits. CHEST: Normal chest expansion. No Telemetry. LUNGS: Absence of any rales, rhonchi. Diminished b/l lung sounds, +expiratory wheezing CARDIOVASCULAR: Regular. S1 and S2 normal. No appreciable rubs, murmurs or gallops. ABDOMEN: Soft, nontender, and nondistended. There is no rebound, voluntary guarding, or rigidity.. EXTREMITIES: 1+ edema to both lower extremities and not cyanotic. No clubbing. Good capillary refill. SKIN: No skin breakdown. Vital Signs (last 8hr) Date Time Temp Pulse Resp B/P (MAP) Pulse Ox O2 Delivery O2 Flow Rate FiO2 05/01/25 11:38 97.9 61 21 127/60 98 Room Air 05/01/25 10:47 135/63 05/01/25 10:45 65 20 N/A Room Air 21 05/01/25 08:00 97.7 71 20 135/63 92 Room Air 05/01/25 06:07 65 20 N/A Room Air 21 05/01/25 04:00 97.5 79 20 123/66 95 Room Air LABS: Laboratory: Test 05/01/25 11:07 05/01/25 04:51 04/30/25 16:05 Range/Units Whole Blood Glucose 173 H 70-110 MG/DL White Blood Count 10.0 4.8-10.8 K/uL Red Blood Count 4.89 4.50-6.20 MIL/uL Hemoglobin 14.5 14.0-18.0 g/dL Hematocrit 45.5 42-54 % Mean Corpuscular Volume 93.0 79-99 fL Mean Corpuscular Hemoglobin 29.7 27.0-33.0 pg Mean Corpuscular Hemoglobin Concent 31.9 L 32.0-36.0 g/dL Red Cell Distribution Width 14.4 11.0-15.5 % Platelet Count 358 130-400 K/uL Mean Platelet Volume 9.8 7.5-10.5 fL Nucleated Red Blood Cells 0.0 0.0-0.19 % Sodium Level 143 136-145 mmol/L Potassium Level 4.1 3.5-5.1 mmol/L Chloride Level 103 101-111 mmol/L Carbon Dioxide Level 33 H 21-32 mmol/L Blood Urea Nitrogen 40 H 7-18 mg/dL Creatinine 1.5 H 0.5-1.3 mg/dL Glomerular Filtration Rate Calc 48 >90 mL/min Random Glucose 145 H 70-105 mg/dL Total Calcium 9.3 8.5-10.1 mg/dL B-Type Natriuretic Peptide 293 H 0-100 pg/mL Bedside Glucose Comment Notified Nurse Current Medications Medications (Trade) Dose Ordered Sig/Dajuan Route PRN Reason Start Time Stop Time Status Last Admin Dose Admin Acetaminophen (TYLenol 325MG TAB) 650 mg Q4H PRN PO MILD PAIN (1-3) 04/28/25 03:00 05/28/25 02:59 Acetaminophen (TYLenol 325MG TAB) 650 mg Q6H PRN PO TEMPERATURE GREATER THAN 101.5 04/28/25 03:00 05/28/25 02:59 Albuterol (DUOneb) 1 UDVIAL Q6H PRN IH SHORTNESS OF BREATH 04/28/25 03:30 05/28/25 03:29 Albuterol (DUOneb) 1 udvial [id number] IH 04/28/25 06:00 05/28/25 05:59 04/29/25 02:16 1 UDVIAL Apixaban (EliquIS 2.5 mg) 2.5 mg BID PO 04/28/25 21:00 05/28/25 20:59 Hold 04/30/25 22:26 2.5 MG Atorvastatin Calcium (LIPItor 20MG) 20 mg HS PO 04/28/25 21:00 05/28/25 20:59 04/30/25 22:26 20 MG Carvedilol (Coreg 6.25MG) 6.25 mg BID PO 04/28/25 21:00 05/28/25 20:59 05/01/25 10:47 6.25 MG Dextrose (D50w) 50 ml AD PRN IV HYPOGLYCEMIA PROTOCOL 04/28/25 03:30 05/28/25 03:29 Empaglifozin (Jardiance 10mg) 10 mg DAILY PO 04/29/25 09:00 05/29/25 08:59 05/01/25 10:45 10 MG Famotidine (Pepcid 20mg Tab) 20 mg DAILY PO 04/28/25 09:00 05/28/25 08:59 05/01/25 10:44 20 MG Furosemide (LASix 20MG VIAL) 20 mg Q12H IV 04/28/25 09:00 04/28/25 20:12 DC 04/28/25 10:23 20 MG Furosemide (LASix 20MG VIAL) 20 mg Q12H IV 04/29/25 09:00 04/29/25 10:28 DC 04/29/25 09:09 20 MG Furosemide (LASix 20MG VIAL) 20 mg Q8H5 IV 04/29/25 10:30 05/01/25 06:36 DC 05/01/25 06:16 20 MG Furosemide (LASix 40MG TAB) 40 mg BID PO 04/28/25 21:00 04/28/25 21:41 DC 04/28/25 21:03 40 MG Furosemide (LASix 40MG TAB) 40 mg DAILY08 PO 05/01/25 08:00 05/31/25 07:59 05/01/25 10:46 40 MG Glucagon (Glucagon 1mg Kit) 1 mg AD PRN IM HYPOGLYCEMIA PROTOCOL 04/28/25 03:30 05/28/25 03:29 Insulin Human Regular (humuLIN R 100 UNIT/ML 3ML) INSULIN SLIDING SCAL... ACHS SQ 04/28/25 07:30 05/28/25 07:29 04/30/25 22:22 2 UNIT Losartan Potassium (CozAAR 25MG TAB) 25 mg DAILY PO 04/29/25 09:00 04/30/25 12:03 DC 04/30/25 09:29 25 MG Losartan Potassium (CozAAR 25MG TAB) 25 mg HSPRN PO 04/28/25 11:30 04/28/25 20:13 DC Magnesium Sulfate 50 ml @ 0 mls/hr PROTOCOL PRN IV OTHER [SEE ORDER COMMENTS] 04/28/25 03:30 05/28/25 03:29 Ondansetron HCl (zoFRAN 4MG INJ) 4 mg Q6H PRN IV NAUSEA/VOMITING 04/28/25 03:00 05/28/25 02:59 Potassium Chloride 100 ml @ 100 mls/hr AD PRN IV POTASSIUM PROTOCOL 04/28/25 03:30 05/28/25 03:29 Potassium Chloride (K-Dur/Klor-Con 20meq) 20 meq AD PRN PO POTASSIUM PROTOCOL 04/28/25 03:30 05/28/25 03:29 Potassium Chloride (KCl 10% Elixir 20meq/15ml) 20 meq AD PRN PO POTASSIUM PROTOCOL 04/28/25 03:30 05/28/25 03:29 Sacubitril/ Valsartan (Entresto 24 Mg-26 Mg Tablet) 1 each BID PO 04/30/25 21:00 05/30/25 20:59 05/01/25 10:46 1 EACH Vitamin B Complex/ Vit C/Folic Acid (Nephrovite Tablet) 1 cap DAILY PO 04/29/25 09:00 05/29/25 08:59 05/01/25 10:46 1 CAP DIAGNOSTICS / RADIOLOGY: [ ] ASSESSMENT: Acute on chronic diastolic heart failure (HFrEF, EF 3035% per echo 04/28/25) NYHA Class III POA Severe low-flow, low-gradient aortic stenosis (ARVIN 0.9 cm) POA Mitral valve regurgitation POA Leukocytosis, mild Azotemia, POA Morbid obesity (BMI > 40) POA Hypertension POA Hyperlipidemia POA Type 2 Diabetes Mellitus POA Obstructive sleep apnea on CPAP POA PLAN: The patient remains admitted on the medical surgical floor. Acute on chronic diastolic heart failure (HFrEF, EF 3035% per echo 04/28/25) NYHA Class III POA * Likely precipitated by medication noncompliance and fluid overload. CXR: Pulmonary vascular congestion, bilateral lower lobe opacities and trace plural effusion. * Lasix 40 mg p.o. daily started, IV Furosemide (Lasix) 20 mg BID was stopped on 05/01/2025 * Strict I&O, daily weights, fluid restriction <2 L/day, low sodium diet. * Monitor renal function and electrolytes. * Transition to oral diuretic when euvolemic. * GDMT initiated: Coreg 6.25 BID, Jardiance 10 mg daily, [id number] mg was stopped, Entresto 24/26 mg was started * Follow up with cardiology recommendations. Severe low-flow, low-gradient aortic stenosis (ARVIN 0.9 cm), POA * Contributing to chronic heart failure and exertional dyspnea. * Avoid hypotension; maintain adequate preload. * Monitor for syncope, angina, or worsening CHF symptoms. * Patient scheduled for SUE on 05/02/2025. Hypertension * Currently stable; goal <130/80 mmHg. * Continue home antihypertensive regimen; monitor closely during diuresis to avoid hypotension. Type 2 Diabetes Mellitus * Continue on sliding scale insulin Leukocytosis, mild, resolved * Likely reactive from CHF or stress; no clear source of infection on imaging. * WBC today was 10 * Monitor CBC; rule out infection if fever or clinical change. Azotemia * Likely prerenal due to congestion. * Trend BMP; adjust diuretic dosing accordingly. Replace electrolytes per protocol. Home medications were reconciled and reviewed. Consider continuing Potassium chloride 20mEQ based on daily labs. DVT Prophylaxis: Eliquis 2.5 mg BID GI Prophylaxis: Famotidine 20 mg daily The case and management plan were discussed in detail with the patient and his . All questions were addressed, and the patient expressed understanding and agreement with the proposed plan. Further orders per hospitalization course. ATTESTATION BY PHYSICIAN I have seen and examined the patient. I reviewed the documentation, medical decision making, and treatment plan as noted by the resident above. I agree with the findings and plan of care. Tim Lomax IV, MD, ADIL SHAH QUADRI MD May 01, 2025 11:56
[2025-05-02 03:50] VITALS: BP 116/55; PULSE 63; RESP 18; TEMP 98.1
[2025-05-02 06:36] VITALS: PULSE 67; RESP 18; O2SAT 97
[2025-05-02 06:40] LABS: NUCLEATED RED BLOOD CELLS 0.0 % (0.0-0.19); PLATELET COUNT (AUTO) 400.0 K/uL (130-400); RED BLOOD CELL COUNT(AUTO) 5.05 MIL/uL (4.50-6.20); RED CELL DISTRIBUTION WIDTH 14.4 % (11.0-15.5); WHITE BLOOD COUNT (AUTO) 10.4 K/uL (4.8-10.8)
[2025-05-02 06:48] LABS: CREATININE 1.3 mg/dL (0.5-1.3); GLOMERULAR FILTR. RATE CALC 57.0 mL/min (>90); GLUCOSE,RANDOM 139.0 mg/dL (70-105); SODIUM SERUM 142.0 mmol/L (136-145); UREA NITROGEN, BLOOD 38.0 mg/dL (7-18)
[2025-05-02 07:10] VITALS: BP 102/76; PULSE 94; RESP 17; TEMP 97.6
--- NOTE | 2025-05-02 09:54 | HMCIMG ---
EXAM: CR Chest, 1 View. CLINICAL HISTORY: Eval for effusion. COMPARISON: None provided. FINDINGS: LUNGS: Mild hazy opacity seen in the left mid and lower zones, likely related to adjacent pleural process or underlying atelectasis. No focal consolidation or pneumothorax. PLEURAL SPACES: Blunting of the left costophrenic angle noted, consistent with minimal left pleural effusion. No right-sided pleural effusion. MEDIASTINUM: Cardiac size and mediastinal contours are within normal limits. BONES: No acute osseous abnormality identified. IMPRESSION: 1. Blunting of left costophrenic angle with minimal left pleural effusion associated with mild hazy opacity in left mid and lower lung zones. /[place]
[2025-05-02 10:50] VITALS: O2SAT 95
[2025-05-02 11:53] VITALS: BP 112/65; PULSE 102; RESP 20; TEMP 98.3
--- NOTE | 2025-05-02 13:34 | PN ---
[facility] PROGRESS NOTE Date of Service: May 02, 2025 Time of Service: 13:34 HISTORY OF PRESENT ILLNESS: This is a 74 year old male with past medical history of CHF,Aortic stenosis,Mitral valve regurgitation, hypertension, hyperlipidemia, diabetes, morbid obesity and obstructive sleep apnea on CPAP at home who presents to the ED for complaints of shortness of breath.Patient reports he missed the dose of Lasix for the past 5 days and he will take the Lasix and missed the Lasix dose again for another 3 days because he was at the court everyday and Last he traveled and missed his dose of Lasix but he noticed has been short of breath and his urine has decreased and his legs are also swollen so he decided to come to the Ed for evaluation.Patient has an appointment with his hot kettle tender Dr.Blake Boyle on May. On examination patient is awake alert and oriented appears mildly short of breath on exertion, patient denies fever, cough, palpitation, chest pain, shortness of breaths signs. Latest vital signs temperature 99, heart rate 76, blood pressure 126/69 saturation 98% on 2 L nasal cannula. Labs: WBC 14 , neutrophils 71, hemoglobin 13, hematocrit 42 platelet 325 troponin 73, BNP 648, BUN 38, glucose 135, alkaline phos 25, albumin 3.4. Chest x-ray result revealed mild cardiomegaly, pulmonary vascular congestion and bilateral lower zone airspace disease. Questionable trace pleural effusion bilaterally. While in the ER patient received 2 mg of Bumex patient for further medical management. SUBJECTIVE: 04/28/2025: The patient was evaluated at bedside in the presence of the RN and a family member. He was observed sitting comfortably in a chair, appearing tired but without signs of acute respiratory distress. He remains on 2.0 L nasal cannula. The patient continues to receive furosemide 20 mg BID for diuresis. Cardiology, under the care of Dr. Patterson, has optimized medical management for congestive heart failure. Recent laboratory studies showed improvement in WBC count from 14.3 to 13.6 and a slight improvement in BNP from 648 to 621. Echocardiogram revealed a severely dilated left ventricle with an ejection fraction of 3035%, stage II diastolic dysfunction, a calcified aortic valve, moderate aortic regurgitation, and severe low-flow, low-gradient aortic stenosis with an aortic valve area of 0.9 cm. The plan is to continue diuresis and monitor the patients clinical and laboratory response. Further assessment and plan are outlined below. 04/29/2025: Patient was evaluated at bedside in the presence of RN and a family member in room 419. Was lying comfortably in his bed and showed no signs of acute respiratory distress. He was saturating well at 93% on room air and has been on 2 L via nasal cannula when asleep. Patient's BNP has downtrended to 351 today and has been responding very well to diuresis. Patient's admits to progressive shortness of breath over the last few months and says that he has severe aortic stenosis. Patient mentioned that Dr. Crawford we will be seeing him tomorrow to discuss about managing his aortic stenosis to better manage his ischemic cardiomyopathy. We will continue diuresing him with Lasix 20 mg IV q.12 and continue on GDMT with carvedilol 6.25 mg b.i.d., [id number] mg daily and Jardiance 10 mg daily. 04/30/2025: Patient was seen and evaluated bedside in room 419. Case discussed with RN, no acute overnight events. Patient was sitting comfortably on chair, denies chest pain, shortness of breath, palpitation. Patient says that he wants to go home [facility]. Lab shows BNP 273, BUN , creatinine 1.3. We will continue Las ix 20 mg IV q.12h and GDMT with carvedilol 6.25 mg b.i.d., [id number] mg daily and Jardiance 10 mg daily. We will discharge him tomorrow after getting clearance from Cardiology. 05/01/2025: Patient was seen and evaluated bedside in room 419. Case discussed with RN, no acute overnight events. Patient is started on Lasix 40 mg p.o. once daily, and Entresto 24/26 mg twice daily and stopped IV Lasix and losartan. Cardiology recommended SUE to rule out intraventricular thrombus, patient is scheduled for SUE in a.m. tomorrow. Cardiology on board, we will follow up with the recommendations. REVIEW OF SYSTEMS CONSTITUTIONAL: Denies fevers, chills, or night sweats. No unintentional weight loss reported. ENT: No hearing loss, otalgia, otorrhea, rhinitis, rhinorrhea, hoarseness, or sore throat. CARDIOVASCULAR: Denies any exertional angina, dyspnea on exertion, orthopnea, paroxysmal nocturnal dyspnea, palpitations, life-threatening arrhythmias, claudication. PULMONARY: + Shortness of breath, improved Denies cough, phlegm/sputum, hemoptysis, pleuritic chest pain. GENITOURINARY: Denies frequency, urgency, nocturia, hematuria or incontinence (Storage/Irritative symptoms.) Low urinary stream, straining to void, urinary intermittency or hesitancy, splitting of the voiding stream, terminal dribbling. ENDOCRINOLOGIC: Denies polyuria, polydipsia, polyphagia or heat/cold intolerances. PHYSICAL EXAM GENERAL APPEARANCE: The patient is awake, alert, and oriented,mildly shortness of breath NEUROLOGICAL: Cranial nerves II-XII grossly intact. Motor is 5/5 in bilateral upper and lower extremities proximal to distal. No sensory deficits. CHEST: Normal chest expansion. No Telemetry. LUNGS: Absence of any rales, rhonchi. Diminished b/l lung sounds, +expiratory wheezing CARDIOVASCULAR: Regular. S1 and S2 normal. No appreciable rubs, murmurs or gallops. ABDOMEN: Soft, nontender, and nondistended. There is no rebound, voluntary guarding, or rigidity.. EXTREMITIES: 1+ edema to both lower extremities and not cyanotic. No clubbing. Good capillary refill. SKIN: No skin breakdown. Vital Signs (last 8hr) Date Time Temp Pulse Resp B/P (MAP) Pulse Ox O2 Delivery O2 Flow Rate FiO2 05/02/25 11:53 98.2 102 20 112/65 91 Room Air 05/02/25 07:10 97.5 94 17 102/76 98 Room Air 05/02/25 06:36 67 18 N/A Room Air 21 LABS: Laboratory: Test 05/02/25 10:53 05/02/25 04:05 04/30/25 16:05 Range/Units Whole Blood Glucose 131 H 70-110 MG/DL White Blood Count 10.4 4.8-10.8 K/uL Red Blood Count 5.05 4.50-6.20 MIL/uL Hemoglobin 15.2 14.0-18.0 g/dL Hematocrit 45.7 42-54 % Mean Corpuscular Volume 90.5 79-99 fL Mean Corpuscular Hemoglobin 30.1 27.0-33.0 pg Mean Corpuscular Hemoglobin Concent 33.3 32.0-36.0 g/dL Red Cell Distribution Width 14.4 11.0-15.5 % Platelet Count 400 130-400 K/uL Mean Platelet Volume 10.2 7.5-10.5 fL Nucleated Red Blood Cells 0.0 0.0-0.19 % Sodium Level 142 136-145 mmol/L Potassium Level 4.1 3.5-5.1 mmol/L Chloride Level 105 101-111 mmol/L Carbon Dioxide Level 30 21-32 mmol/L Blood Urea Nitrogen 38 H 7-18 mg/dL Creatinine 1.3 0.5-1.3 mg/dL Glomerular Filtration Rate Calc 57 >90 mL/min Random Glucose 139 H 70-105 mg/dL Total Calcium 9.0 8.5-10.1 mg/dL B-Type Natriuretic Peptide 179 H 0-100 pg/mL Bedside Glucose Comment Notified Nurse Current Medications Medications (Trade) Dose Ordered Sig/Dajuan Route PRN Reason Start Time Stop Time Status Last Admin Dose Admin Acetaminophen (TYLenol 325MG TAB) 650 mg Q4H PRN PO MILD PAIN (1-3) 04/28/25 03:00 05/28/25 02:59 Acetaminophen (TYLenol 325MG TAB) 650 mg Q6H PRN PO TEMPERATURE GREATER THAN 101.5 04/28/25 03:00 05/28/25 02:59 Albuterol (DUOneb) 1 UDVIAL Q6H PRN IH SHORTNESS OF BREATH 04/28/25 03:30 05/28/25 03:29 Albuterol (DUOneb) 1 udvial [id number] IH 04/28/25 06:00 05/28/25 05:59 04/29/25 02:16 1 UDVIAL Apixaban (EliquIS 2.5 mg) 2.5 mg BID PO 04/28/25 21:00 05/02/25 07:23 DC 04/30/25 22:26 2.5 MG Atorvastatin Calcium (LIPItor 20MG) 20 mg HS PO 04/28/25 21:00 05/28/25 20:59 05/01/25 20:12 20 MG Carvedilol (Coreg 6.25MG) 6.25 mg BID PO 04/28/25 21:00 05/28/25 20:59 05/01/25 20:13 6.25 MG Dextrose (D50w) 50 ml AD PRN IV HYPOGLYCEMIA PROTOCOL 10/18/25 03:30 05/28/25 03:29 Empaglifozin (Jardiance 10mg) 10 mg DAILY PO 04/29/25 09:00 05/29/25 08:59 05/01/25 10:45 10 MG Famotidine (Pepcid 20mg Tab) 20 mg DAILY PO 04/28/25 09:00 05/28/25 08:59 05/01/25 10:44 20 MG Furosemide (LASix 20MG VIAL) 20 mg Q12H IV 04/28/25 09:00 04/28/25 20:12 DC 04/28/25 10:23 20 MG Furosemide (LASix 20MG VIAL) 20 mg Q12H IV 04/29/25 09:00 04/29/25 10:28 DC 04/29/25 09:09 20 MG Furosemide (LASix 20MG VIAL) 20 mg Q8H5 IV 04/29/25 10:30 05/01/25 06:36 DC 05/01/25 06:16 20 MG Furosemide (LASix 40MG TAB) 40 mg BID PO 04/28/25 21:00 04/28/25 21:41 DC 04/28/25 21:03 40 MG Furosemide (LASix 40MG TAB) 40 mg DAILY08 PO 05/01/25 08:00 05/31/25 07:59 05/01/25 10:46 40 MG Glucagon (Glucagon 1mg Kit) 1 mg AD PRN IM HYPOGLYCEMIA PROTOCOL 04/28/25 03:30 05/28/25 03:29 Insulin Human Regular (humuLIN R 100 UNIT/ML 3ML) INSULIN SLIDING SCAL... ACHS SQ 04/28/25 07:30 05/28/25 07:29 05/01/25 20:19 4 UNIT Losartan Potassium (CozAAR 25MG TAB) 25 mg DAILY PO 04/29/25 09:00 04/30/25 12:03 DC 04/30/25 09:29 25 MG Losartan Potassium (CozAAR 25MG TAB) 25 mg HSPRN PO 04/28/25 11:30 04/28/25 20:13 DC Magnesium Sulfate 50 ml @ 0 mls/hr PROTOCOL PRN IV OTHER [SEE ORDER COMMENTS] 04/28/25 03:30 05/28/25 03:29 Ondansetron HCl (zoFRAN 4MG INJ) 4 mg Q6H PRN IV NAUSEA/VOMITING 04/28/25 03:00 05/28/25 02:59 Potassium Chloride 100 ml @ 100 mls/hr AD PRN IV POTASSIUM PROTOCOL 04/28/25 03:30 05/28/25 03:29 Potassium Chloride (K-Dur/Klor-Con 20meq) 20 meq AD PRN PO POTASSIUM PROTOCOL 04/28/25 03:30 05/28/25 03:29 Potassium Chloride (KCl 10% Elixir 20meq/15ml) 20 meq AD PRN PO POTASSIUM PROTOCOL 04/28/25 03:30 05/28/25 03:29 Sacubitril/ Valsartan (Entresto 24 Mg-26 Mg Tablet) 1 each BID PO 04/30/25 21:00 05/30/25 20:59 05/01/25 20:12 1 EACH Vitamin B Complex/ Vit C/Folic Acid (Nephrovite Tablet) 1 cap DAILY PO 04/29/25 09:00 05/29/25 08:59 05/01/25 10:46 1 CAP DIAGNOSTICS / RADIOLOGY: [ ] ASSESSMENT: Acute on chronic diastolic heart failure (HFrEF, EF 3035% per echo 04/28/25) NYHA Class III POA Severe low-flow, low-gradient aortic stenosis (ARVIN 0.9 cm) POA Mitral valve regurgitation POA Leukocytosis, mild Azotemia, POA Morbid obesity (BMI > 40) POA Hypertension POA Hyperlipidemia POA Type 2 Diabetes Mellitus POA Obstructive sleep apnea on CPAP POA PLAN: The patient remains admitted on the medical surgical floor. Acute on chronic diastolic heart failure (HFrEF, EF 3035% per echo 04/28/25) NYHA Class III POA * Likely precipitated by medication noncompliance and fluid overload. CXR: Pulmonary vascular congestion, bilateral lower lobe opacities and trace plural effusion. * Lasix 40 mg p.o. daily started, IV Furosemide (Lasix) 20 mg BID was stopped on 05/01/2025 * Strict I&O, daily weights, fluid restriction <2 L/day, low sodium diet. * Monitor renal function and electrolytes. * Transition to oral diuretic when euvolemic. * GDMT initiated: Coreg 6.25 BID, Jardiance 10 mg daily, [id number] mg was stopped, Entresto 24/26 mg was started * Follow up with cardiology recommendations. Severe low-flow, low-gradient aortic stenosis (ARVIN 0.9 cm), POA * Contributing to chronic heart failure and exertional dyspnea. * Avoid hypotension; maintain adequate preload. * Monitor for syncope, angina, or worsening CHF symptoms. * Patient scheduled for SUE on 05/02/2025. Hypertension * Currently stable; goal <130/80 mmHg. * Continue home antihypertensive regimen; monitor closely during diuresis to avoid hypotension. Type 2 Diabetes Mellitus * Continue on sliding scale insulin Leukocytosis, mild, resolved * Likely reactive from CHF or stress; no clear source of infection on imaging. * WBC today was 10 * Monitor CBC; rule out infection if fever or clinical change. Azotemia * Likely prerenal due to congestion. * Trend BMP; adjust diuretic dosing accordingly. Replace electrolytes per protocol. Home medications were reconciled and reviewed. Consider continuing Potassium chl oride 20mEQ based on daily labs. DVT Prophylaxis: Eliquis 2.5 mg BID GI Prophylaxis: Famotidine 20 mg daily The case and management plan were discussed in detail with the patient and his . All questions were addressed, and the patient expressed understanding and agreement with the proposed plan. Further orders per hospitalization course. RENATA HERNANDEZ MD May 02, 2025 13:34
[2025-05-02] MEDS ORDERED: PERFLUTREN PROTEIN-A MICROSPHR 0.22 MG/ML VIAL IV ONE (14:00)
--- NOTE | 2025-05-02 15:17 | DS ---
Discharge Summary Hospital Course Summary: This is a 74 year old male with past medical history of CHF,Aortic stenosis,Mitral valve regurgitation, hypertension, hyperlipidemia, diabetes, morbid obesity and obstructive sleep apnea on CPAP at home who presents to the ED for complaints of shortness of breath.Patient reports he missed the dose of Lasix for the past 5 days and he will take the Lasix and missed the Lasix dose again for another 3 days because he was at the court everyday and Last he traveled and missed his dose of Lasix but he noticed has been short of breath and his urine has decreased and his legs are also swollen so he decided to come to the Ed for evaluation.Patient has an appointment with his manager molecular Dr.Blake Boyle on May. On examination patient is awake alert and oriented appears mildly short of breath on exertion, patient denies fever, cough, palpitation, chest pain, shortness of breaths signs. Latest vital signs temperature 99, heart rate 76, blood pressure 126/69 saturation 98% on 2 L nasal cannula.Labs: WBC 14 , neutrophils 71, hemoglobin 13, hematocrit 42 platelet 325 troponin 73, BNP 648, BUN 38, glucose 135, alkaline phos 25, albumin 3.4. Patient was admitted for further management of acute exacerbation of CHF. On admission cardiology was consulted for further evaluation. patient responded well to IV Lasix 20 mg q.12h, shortness of breath and edema of his legs has been improved. Cardiology stopped IV Lasix and started furosemide 40 mg p.o. daily and guideline directed medical therapy for congestive heart failure was initiated which included carvedilol, Jardiance, atorvastatin, sacubitril/valsartan. Patient's home medication losartan was stopped. Patient is on long-term anticoagulation with Eliquis 2.5 mg which was started by his manager molecular Dr. Shelton. Patient do not remember the indication why he is on anticoagulant therapy. Consulting manager molecular wanted to rule out intraventricular thrombus. Echocardiogram with contrast was performed which showed severe aortic stenosis,no intraventricular thrombus. On 05/02/2025 patient found hemodynamically stable to discharge home. Patient was advised to take all medications as prescribed. Patient was advised to follow up with his PCP in 1 week. Patient was advised to follow up with his manager molecular for medication review and optimization of GDMT for congestive heart failure and further evaluation of aortic stenosis. Gluer And Slicer Hand(s): CONSULTATION REPORT Name: YVETTE GLASS JR Acct: [id number] MR: [id number] : 1950 Admit Date: 04/28/25 [place] BAUTISTA MD [facility] [address] [place] [address] [facility] CARDIOLOGY CONSULTATION NOTE Date Patient Seen: Apr 28, 2025 Time of Visit: 13:51 Reason for Consultation: [CHF exacerbation ] History of Present Illness: [ 74-year-old male patient that follows up in Cardiology Clinic with Dr. Shelton, with a past medical history of ischemic cardiomyopathy, aortic stenosis, hypertension, type 2 diabetes, morbid obesity patient presents to the emergency department endorsing ongoing progressive shortness of breath, with a underlying noncompliance of Lasix for the past week, noted bilateral lower extremity swelli ng, this prompted the patient to present to the emergency department for further evaluation, troponin 73, BNP 648, chest x-ray with pulmonary vascular congestion, trace pleural effusion bilaterally, patient was treated initially with Bumex . Presenting ECG sinus rhythm, left bundle branch block , on examination the patient is sitting in his chair comfortably, requiring supplemental O2 by nasal cannula, on physical exam we noted decreased breath sounds bilaterally, no pressors of JVD or rales, trace bilateral lower extremity edema. The patient denies any chest pain, palpitations, or any other anginal equivalents. Patient underwent 2D echocardiogram, pending results. Cardiology was consulted for CHF exacerbation] Past Medical History: [ Refer to chart] Past Surgical History: [ Refer to HPI] Family History: [ Refer to HPI] Social History: [ Refer to HPI] Habits: [Never] smoker. [Denies] alcohol consumption. [Denies] illicit drug use Review of Systems: A review of12 point systems was negative set per HPI Physical Examination: GENERAL: [No acute distress.] HEAD: [Normal with no signs of head trauma.] EYES: [PERRLA, EOMI, conjunctiva and sclera normal.] ENT: [Hearing grossly intact, normal oropharynx.] NECK: [Supple without JVD. There is no tenderness, lymphadenopathy, or masses. No thyromegaly. Normal carotid upstrokes without bruits.] LUNGS: [Decreased breath sounds bilaterally HEART: [Normal rate and rhythm. Normal S1 and S2 without mumurs, gallop or rub.] VASC: [Peripheral pulses +2 bilaterally.] ABD: [Bowel sounds normal, soft, nontender, no masses, no organomegaly. No audible bruits.] : [Not examined] LYMPH: [No lymphadenopathy noted.] EXT: [Trace bilateral lower extremity edema.] SKIN: [No rashes or lesions noted.] NEURO: [Awake, alert, and oriented x3. No focal sensory or strength deficits noted.] Vital Signs (last 8hr) Date Time Temp Pulse Resp B/P (MAP) Pulse Ox O2 Delivery O2 Flow Rate FiO2 04/28/25 12:00 98.1 68 18 132/71 95 Nasal Cannula 1.0 04/28/25 10:29 75 20 04/28/25 08:00 98.1 78 18 135/65 92 Nasal Cannula 1.0 04/28/25 06:55 71 20 04/28/25 06:55 74 20 N/Cannula Low lpm 2.0 28 Laboratory: [ ] Hematology Labs: Test 04/28/25 06:00 Range/Units White Blood Count 13.6 H 4.8-10.8 K/uL Red Blood Count 4.59 4.50-6.20 MIL/uL Hemoglobin 13.7 L 14.0-18.0 g/dL Hematocrit 42.1 42-54 % Mean Corpuscular Volume 91.7 79-99 fL Mean Corpuscular Hemoglobin 29.8 27.0-33.0 pg Mean Corpuscular Hemoglobin Concent 32.5 32.0-36.0 g/dL Red Cell Distribution Width 14.6 11.0-15.5 % Platelet Count 299 130-400 K/uL Mean Platelet Volume 9.8 7.5-10.5 fL Immature Granulocyte % (Auto) 0.8 0-1 % Neutrophils (%) (Auto) 69.3 40.0-77.0 % Lymphocytes (%) (Auto) 16.7 L 21.0-51.0 % Monocytes (%) (Auto) 11.4 3.0-13.0 % Eosinophils (%) (Auto) 1.3 0.0-8.0 % Basophils (%) (Auto) 0.5 0.0-5.0 % Neutrophils # (Auto) 9.4 H 1.8-7.7 K/uL Lymphocytes # (Auto) 2.3 1.0-4.8 K/uL Monocytes # (Auto) 1.6 H 0.1-1.0 K/uL Eosinophils # (Auto) 0.18 0.00-0.70 K/uL Basophils # (Auto) 0.07 0.00-0.20 K/uL Absolute Immature Granulocyte (auto 0.11 0-1 K/uL Nucleated Red Blood Cells 0.0 0.0-0.19 % Chemistry Labs: Test 04/28/25 10:33 04/28/25 06:00 Range/Units Whole Blood Glucose 157 H 70-110 MG/DL Sodium Level 140 136-145 mmol/L Potassium Level 4.6 3.5-5.1 mmol/L Chloride Level 102 101-111 mmol/L Carbon Dioxide Level 31 21-32 mmol/L Blood Urea Nitrogen 34 H 7-18 mg/dL Creatinine 1.3 0.5-1.3 mg/dL Glomerular Filtration Rate Calc 57 >90 mL/min Random Glucose 139 H 70-105 mg/dL Total Calcium 9.0 8.5-10.1 mg/dL Magnesium Level 2.20 1.80-2.40 mg/dL Total Bilirubin 1.0 # 0.2-1.0 mg/dL Aspartate Amino Transf (AST/SGOT) 20 10-37 U/L Alanine Aminotransferase (ALT/SGPT) 26 12-78 U/L Alkaline Phosphatase 31 L 50-136 U/L Troponin I High Sensitivity 81 *H 4-75 ng/L B-Type Natriuretic Peptide 621 H 0-100 pg/mL Total Protein 7.1 6.0-8.3 g/dL Albumin 3.3 L 3.5-5.0 g/dL Diagnostics / Radiology: [Copy/Paste Echos/Imaging Report here] Assessment: [History of aortic stenosis Type 2 diabetes mellitus Hypertension Morbid obesity Hyperlipidemia Ischemic cardiomyopathy ] Plan: [#HFrEF ICM - LVEF 30-35 % - NYHA III Compensated but not euvolemic on exam Lexiscan stress test in 2020 with large severe fixed defect from base to apex involves the entire lateral inferior wall corresponding to akinetic segments 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 Strict I's and O's and daily weights, continue Lasix 20 mg IV every 12 hours Optimize GDMT: Coreg 6.25 mg every 12 hours, [id number] mg daily, Jardiance 10 mg daily Pending 2D echocardiogram results Thank you for this consult cardiology will continue to follow along, formal recommendations pending 2D echocardiogram results Indiana bautista MD ] ATTESTATION BY PHYSICIAN I have seen and examined the patient, reviewed the above documentation, participated in medical decision making, made necessary modifications, and agree with the treatment plan as documented by my mid-level provider above. MD MARIA GUADALUPE Soliman JAMES R MD Apr 28, 2025 14:04 Electronically Signed by: [place] BAUTISTA MD04/28/25 1404 Electronically Co-Signed by: Procedure(s): [place] [address] [id number] IMAGING REPORT Signed PATIENT: YVETTE GLASS JR MR#: [id number] : 1950 SEX: M AGE: 74 LOCATION: [facility] ORDER 00 STATUS: REG REPORT#: [id number] SERVICE 58 REASON: chf ORDERING PHYSICIAN: SENA RAMIREZ MD PROCEDURE: CXR1VW - CHEST 1VW EXAM: CR Chest, 1 view CLINICAL HISTORY: Shortness of breath. COMPARISON: 02/27/2011. FINDINGS: Mild cardiomegaly, pulmonary vascular congestion, and bilateral lower zone airspace disease. Questionable trace pleural effusions bilaterally. No pneumothorax. No acute osseous abnormality. IMPRESSION: Mild cardiomegaly, pulmonary vascular congestion, and bilateral lower zone airspace disease. Questionable trace pleural effusions bilaterally. The findings are new compared to the previous chest radiograph. /[place] DICTATED BY: TAMMI FOSTER Jr., MD DATE: 04/28/25121 ELECTRONICALLY SIGNED BY: TAMMI FOSTER Jr., MD DATE: 04/28/25121 [place] [id number] [place] [address] [phone] IMAGING REPORT Signed PATIENT: YVETTE GLASS JR MR#: [id number] : 1950 SEX: M AGE: 74 LOCATION: [facility] ORDER 3 STATUS: ADM IN REPORT#: [id number] SERVICE REASON: sob ORDERING PHYSICIAN: SAMIRA WELLS PROCEDURE: ECHO CMP - ECHO 2-D COMPLETE APPROVED REPORT EXAM: Two-dimensional and M-mode echocardiogram with Doppler and color Doppler. INDICATION ICD: Shortness of breath R06.02 2D Dimensions RVDd 4.5 cm LVEF(%) 15.2 (>50%) LVED Vol(simp.) 205.0 mL IVSd 0.6 (0.7-1.1cm) FS(%) 7 % LVES Vol(simp.) 142.0 mL LVDd 6.1 (3.8-5.6cm) LA (2D) 5.0 (1.6-4.0cm) LVEF(%, simp.) 31 % PWd 0.6 (0.7-1.1cm) Ao Root(2D) 2.7 (2.0-3.7cm) LA ESV INDEX (BP) 37.50 mL/m2 LVDs 5.7 (2.5-4.0cm) LVOT diam 2.2 (1.8-2.4cm) IVC diam 2.5 cm Deformation Strain Apical 4 -7.2 % Apical 2 -7.8 % Apical 3 -5.1 % Global Strain -6.7 % M-Mode Dimensions EPSS 1.4 cm LA (MM) 6.1 (1.6-4.0cm) Ao Root(MM) 3.0 (2.0-3.7cm) Aortic Valve AoV Vmax 3.6 m/s Ao Peak GR 51.2 mmHg LVOT Vmax 0.9 m/s AoV VTI 0.8 m Ao Mean GR 32.8 mmHg LVOT VTI 0.20 m ARVIN (VMAX) 1.00 cm2 Al P1/2T 263 ms ARVIN (VTI) 0.9 cm2 Mitral Valve MV E Vmax 104.2 cm/s DECEL Time 106 ms MV A Vmax 50.7 cm/s P 1/2 T 72 ms E/A ratio 2.1 MVA (PHT) 3.1 cm2 TDI E/E' Medial 20.9 E/E' Lateral 16.9 Medial E' Peak V 4.99 cm/s Lateral E' Peak V 6.17 cm/s Pulmonary Valve PV Vmax 1.2 m/s PV VTI 0.22 m PV Mean GR 2.8 mmHg PV Peak GR 5.5 mmHg Left Ventricle The left ventricle is severely dilated. There is normal left ventricular wall thickness. LVEF is 30-35%. Cannot rule out left ventricular apical thrombus. Stage II diastolic dysfunction. Right Ventricle The right ventricle is mildly dilated. The right ventricular systolic function is normal. Atria LAE ADRIANO Aortic Valve The aortic valve is calcified and displays decreased opening. Moderate aortic regurgitation. Severe low flow low gradient aortic stenosis with ARVIN 0.9 cm2. Highest mean aortic valve gradient is 39mmHg. Peak aortic valve gradient is 58mmHg. PV 3.3 m/s. Mitral Valve Mitral valve leaflets appear normal. Mitral regurgitation is mild. There is no mitral valve stenosis. Tricuspid Valve The tricuspid valve is normal in structure. There is no tricuspid valve regurgitation noted. Pulmonic Valve The pulmonary valve is normal in structure and function. There is no pulmonic valvular regurgitation. Great Vessels The aortic root is normal in size. IVC is dilated and collapses <50% with inspiration. Pericardium No pericardial effusion. Conclusion The left ventricle is severely dilated. LVEF is 30-35%. Stage II diastolic dysfunction. Cannot rule out left ventricular apical thrombus. The right ventricle is mildly dilated. The right ventricular systolic function is normal. LAE ADRIANO The aortic valve is calcified and displays decreased opening. Moderate aortic regurgitation. Severe low flow low gradient aortic stenosis with ARVIN 0.9 cm2. Highest mean aortic valve gradient is 39mmHg. Peak aortic valve gradient is 58mmHg. PV 3.3 m/s. Mitral regurgitation is mild. IVC is dilated and collapses <50% with inspiration. No pericardial effusion. DICTATED BY: ALLYN BAUTISTA MD DATE: 04/28/25 1000 ELECTRONICALLY SIGNED BY: ALLYN BAUTISTA MD DATE: 04/28/25 1346 [facility] [address] [place] [phone] IMAGING REPORT Signed PATIENT: YVETTE GLASS JR MR#: [id number] : 1950 SEX: M AGE: 74 LOCATION: [facility] ORDER 0636 STATUS: ADM IN REPORT#: [id number] SERVICE 0624 REASON: eval for effusion ORDERING PHYSICIAN: SARA POTTER PROCEDURE: CXR1VW - CHEST 1VW EXAM: CR Chest, 1 View. CLINICAL HISTORY: Eval for effusion. COMPARISON: None provided. FINDINGS: LUNGS: Mild hazy opacity seen in the left mid and lower zones, likely related to adjacent pleural process or underlying atelectasis. No focal consolidation or pneumothorax. PLEURAL SPACES: Blunting of the left costophrenic angle noted, consistent with minimal left pleural effusion. No right-sided pleural effusion. MEDIASTINUM: Cardiac size and mediastinal contours are within normal limits. BONES: No acute osseous abnormality identified. IMPRESSION: 1. Blunting of left costophrenic angle with minimal left pleural effusion associated with mild hazy opacity in left mid and lower lung zones. /[place] DICTATED BY: NICOLA HAIRSTON MD DATE: 05/02/25 105 ELECTRONICALLY SIGNED BY: NICOLA HAIRSTON MD DATE: 05/02/25 1050 [facility] [address] [place] [phone] IMAGING REPORT Signed PATIENT: YVETTE GLASS JR MR#: [id number] : 1950 SEX: M AGE: 74 LOCATION: [facility] ORDER 1223 STATUS: DIS IN REPORT#: [id number] SERVICE 1217 REASON: RULE OUT LV THROMBUS ORDERING PHYSICIAN: JAMA CARO MD PROCEDURE: ECHO LT CN - ECHO 2D LTMD WWO CONT APPROVED REPORT EXAM: LIMITED Two-dimensional echocardiogram with contrast. INDICATION ICD: rule out LV thrombus Contrast Details Indication: Rule out thrombus Agent/Amount Used: Optison Left Ventricle The left ventricle is dilated. There is normal left ventricular wall thickness. LVEF is 30-35%. No left ventricular thrombus noted. Aortic Valve The aortic valve is calcified and displays decreased opening. There is moderate valvular aortic stenosis. Pericardium The pericardium appears normal. Other Information Quality : Limited/Follow-up Conclusion The left ventricle is dilated. LVEF is 30-35%. No left ventricular thrombus noted. There is moderate valvular aortic stenosis. No pericardial effusion. DICTATED BY: [place] BAUTISTA MD DATE: 05/02/25 1341 ELECTRONICALLY SIGNED BY: [place] BAUTISTA MD DATE: 05/02/25 6265 Assessment/Plan: ASSESSMENT: Acute on chronic diastolic heart failure (HFrEF, EF 3035% per echo 04/28/25) NYHA Class III POA Severe low-flow, low-gradient aortic stenosis (ARVIN 0.9 cm) POA Mitral valve regurgitation POA Leukocytosis, mild Azotemia, POA Morbid obesity (BMI > 40) POA Hypertension POA Hyperlipidemia POA Type 2 Diabetes Mellitus POA Obstructive sleep apnea on CPAP POA Discharge Instructions: The patient was admitted for acute on chronic congestive heart failure exacerbation and is now clinically improved. He was offered guideline-directed medical therapy (GDMT) including Entresto, Coreg, Furosemide, and Jardiance. However, the patient declined Entresto initi ation and prefers to continue Losartan until he can discuss further medication changes with his primary manager molecular, Dr. Shelton. Instruct the patient to maintain daily weights, monitor for swelling, shortness of breath, or chest pain, and seek medical attention if symptoms worsen. Encourage low-sodium diet, fluid restriction as advised, and medication compliance. Discontinue Eliquis- Patient refused to discontinue at this time. He was on Eliquis at home and will speak with the primary manager molecular first before making any decisions. Continue the following:Losartan Continue home dose as previously prescribed Carvedilol (Coreg) 6.25 BID Furosemide (Lasix) 40 mg daily Empagliflozin (Jardiance) 10 mg daily (Patient declined Entresto initiation at this time.) Primary Care Provider: within 1 week Cardiology (Dr. Shelton): within 1 week for medication review and optimization of GDMT Home Medications: Reported Medications Losartan Potassium (Losartan Potassium) 25 Mg Tablet, 25 MG PO HSPRN, TAB 04/28/25 Carvedilol (Carvedilol) 6.25 Mg Tablet, 6.25 MG PO BID, TAB 04/28/25 Furosemide (Furosemide) 20 Mg Tablet, 20 MG PO DAILY, TAB 04/28/25 Latanoprost/Pf (Latanoprost 0.005% Eye Drop) 7.5 Ml Drops, 1 DROP OP HS, DROP 08/25/21 Timolol Maleate/Pf (Timolol Maleate 0.5% Eye Drop) 1 Each Droperette, 1 EACH OP DAILY, DROP 08/25/21 [Calcium 1200+D325] No Conflict Check, 1 TAB PO HS 08/25/21 Atorvastatin Calcium (LIPITOR) 20 Mg Tab, 20 MG PO HS, TAB 08/25/21 Potassium Chloride (Klor-Con M20) 20 Meq Tab.er.prt, 20 MEQ PO DAILY 08/25/21 Vit B Cmplx 3/FA/Vit C/Biotin (Nida-Riana Rx Tablet) 1 Each Tablet, 1 EACH PO DAILY, TAB 08/25/21 Metformin HCl (Metformin HCl) 500 Mg Tablet, 500 MG PO BID, TAB 08/25/21 Discontinued Reported Medications Furosemide (Furosemide) 40 Mg Tablet, 40 MG PO BID, TAB 04/28/25 Apixaban (Eliquis) 2.5 Mg Tablet, 2.5 MG PO BID, TAB 08/25/21 Continued Medications: Atorvastatin Calcium (Lipitor) 20 Mg Tab 20 MG PO HS, TAB [Calcium 1200+D325] () 1 TAB PO HS Carvedilol (Carvedilol) 6.25 Mg Tablet 6.25 MG PO BID, TAB Furosemide (Furosemide) 20 Mg Tablet 20 MG PO DAILY, TAB Latanoprost/Pf (Latanoprost 0.005% Eye Drop) 7.5 Ml Drops 1 DROP OP HS, DROP Losartan Potassium (Losartan Potassium) 25 Mg Tablet 25 MG PO HSPRN, TAB Metformin HCl (Metformin HCl) 500 Mg Tablet 500 MG PO BID, TAB Potassium Chloride (Klor-Con M20) 20 Meq Tab.er.prt 20 MEQ PO DAILY Timolol Maleate/Pf (Timolol Maleate 0.5% Eye Drop) 1 Each Droperette 1 EACH OP DAILY, DROP Vit B Cmplx 3/FA/Vit C/Biotin (Nida-Riana Rx Tablet) 1 Each Tablet 1 EACH PO DAILY, TAB Discontinued Medications: Apixaban (Eliquis) 2.5 Mg Tablet 2.5 MG PO BID, TAB Furosemide (Furosemide) 40 Mg Tablet 40 MG PO BID, TAB Time spent arranging discharge: 1-30 minutes ATTESTATION BY PHYSICIAN I have seen and examined the patient. I reviewed the documentation, medical decision making, and treatment plan as noted by the resident above. I agree with the findings and plan of care. Tim Lomax IV, MD, ADIL SHAH QUADRI MD May 02, 2025 15:17
--- NOTE | 2025-05-02 15:30 | NUR ---
PATIENT DISCHARGE PATIENT DISCHARGED TO HOME. PERIPHERAL IV REMOVED CATHETER INTACT. DISCHARGE INSTRUCTIONS GIVEN. PATIENT AWARE TO F/U WITH PCP. PER PATIENT HAS F/U APPT SCHEDULED. PATIENT AWARE TO F/U WITH ESTIMATING ENGINEER. NO NEW PRESCRIPTIONS. ALL QUESTIONS ANSWERED. PATIENT TAKEN DOWN BY WHEELCHAIR. ALL BELONGINGS SENT WITH PATIENT.
--- NOTE | 2025-05-02 16:24 | HMCSR ---
APPROVED REPORT EXAM: LIMITED Two-dimensional echocardiogram with contrast. INDICATION ICD: rule out LV thrombus Contrast Details Indication: Rule out thrombus Agent/Amount Used: Optison Left Ventricle The left ventricle is dilated. There is normal left ventricular wall thickness. LVEF is 30-35%. No le ft ventricular thrombus noted. Aortic Valve The aortic valve is calcified and displays decreased opening. There is moderate valvular aortic steno sis. Pericardium The pericardium appears normal. Other Information Quality : Limited/Follow-up Conclusion The left ventricle is dilated. LVEF is 30-35%. No left ventricular thrombus noted. There is moderate valvular aortic stenosis. No pericardial effusion.
== END 2025-05-02 15:45 | disposition home or self-care (01) | DRG 291 ==
LOC: EDH 22:30 → EDHIP 04-28 02:58 → 4CH 04-28 04:58
PROVIDERS: ADMIT Internal Medicine; ATTEND Internal Medicine
DX: I11.0 Hypertensive heart disease with heart failure (principal); I50.33 Acute on chronic diastolic (congestive) heart failure; N17.9 Acute kidney failure, unspecified; Z68.41 Body mass index [BMI] 40.0-44.9, adult; I25.5 Ischemic cardiomyopathy; I25.10 Atherosclerotic heart disease of native coronary artery without angina pectoris; G47.33 Obstructive sleep apnea (adult) (pediatric); E78.5 Hyperlipidemia, unspecified; E11.9 Type 2 diabetes mellitus without complications; E66.01 Morbid (severe) obesity due to excess calories; Z96.651 Presence of right artificial knee joint; I27.20 Pulmonary hypertension, unspecified; D72.829 Elevated white blood cell count, unspecified; I08.0 Rheumatic disorders of both mitral and aortic valves; I44.7 Left bundle-branch block, unspecified; Z79.01 Long term (current) use of anticoagulants; Z79.84 Long term (current) use of oral hypoglycemic drugs; Z79.899 Other long term (current) drug therapy; Z91.148 Patient's other noncompliance with medication regimen for other reason
CPT/HCPCS: 36415; 71045; 80048; 80053; 82948; 83735; 83880; 84484; 85025; 85027; 93005; 93306; 93356; 94640; 94664; 94760; 96374; 99285; C8924; G0378; J1815; J1938; J3490; Q9956